=== PATIENT | male | born 1980 | race Two or more races ===

== ENCOUNTER 2018-12-02 10:59 | Inpatient (IN) | payer MEDICAID ==
[~2018-12-02] VITALS: Ht 177.8 cm; Wt 71.4 kg
[2018-12-02 11:45] VITALS: BP 107/66
[2018-12-02] MEDS ORDERED: RISP.5 PO (11:48)
[2018-12-02] MEDS ORDERED: HALOPERIDOL 5 MG TABLET PO PRN (12:00)
[2018-12-02] MEDS ORDERED: OLANZapine 5 MG RAPDIS TABLET PO ONE (14:45)
[2018-12-02] MEDS ORDERED: IBUPROFEN 400 MG TABLET PO PRN (16:00)
[2018-12-02] MEDS ORDERED: ALBUTEROL SULFATE HFA 90 MCG/PUFF 8 GM INHALER IH PRN (16:00)
[2018-12-02] MEDS ORDERED: ACETAMINOPHEN 325 MG TABLET PO PRN (16:00)
[2018-12-02] MEDS ORDERED: ONDANSETRON HCL 4 MG TABLET PO PRN (16:00)
[2018-12-02] MEDS ORDERED: LOPERAMIDE HCL 2 MG CAPSULE PO PRN (16:00)
[2018-12-02] MEDS ORDERED: CloNIDine HCL 0.1 MG TABLET PO PRN (16:00)
[2018-12-02] MEDS ORDERED: NICOTINE 14 MG/24 HOUR PATCH TD PRN (16:00)
[2018-12-02] MEDS ORDERED: MAG HYDROX/AL HYDROX/SIMETH ES 30 ML SUSPENSION UDCUP PO PRN (16:00)
[2018-12-02] MEDS ORDERED: PETROLATUM,WHITE 28 GM JELLY TP PRN (16:00)
[2018-12-02] MEDS ORDERED: DOCUSATE SODIUM 100 MG CAPSULE PO PRN (16:00)
[2018-12-02] MEDS ORDERED: MAGNESIUM HYDROXIDE SUSPENSION 30 ML UDCUP PO PRN (16:00)
[2018-12-02] MEDS ORDERED: GuaiFENesin/D-METHORPHAN [SUGAR-FREE] 200-20MG/10 ML SYRUP UDCUP PO PRN (16:00)
[2018-12-02 16:11] VITALS: BP 132/74
[2018-12-02] MEDS: ZOLPIDEM TARTRATE 10 MG TABLET PO PRN (20:09)
[2018-12-02] MEDS: MIRTAZAPINE 15 MG TABLET PO SCH (20:09)
[2018-12-03 08:17] VITALS: BP 108/63
[2018-12-03] MEDS: LORazepam 2 MG TABLET PO PRN ×3 (08:29→22:26)
[2018-12-03] MEDS: OLANZapine 5 MG RAPDIS TABLET PO SCH ×2 (08:30→16:47)
[2018-12-03 09:06] LABS: BASOPHILS % (AUTO) 0.4 % (0.0-2.0); EOSINOPHILS % (AUTO) 12.8 % (1.0-6.0); HEMATOCRIT 44.7 % (41-53); HEMOGLOBIN 15.3 g/dL (13.5-17.5); LYMPHOCYTES # (AUTO) 1.5 K/uL (1.0-4.8); LYMPHOCYTES % (AUTO) 22.5 % (22.0-44.0); MEAN CORPUSCULAR HEMOGLOBIN 30.9 pg (26.0-34.0); MEAN CORPUSCULAR HGB CONC 34.3 G/dL (31.0-37.0); MEAN CORPUSCULAR VOLUME 90 fL (80-100); MONOCYTES # (AUTO) 0.6 K/uL (0.1-1.0); MONOCYTES % (AUTO) 9.9 % (2.0-9.0); NEUTROPHILS # (AUTO) 3.5 K/uL (1.8-7.7); NEUTROPHILS % (AUTO) 54.4 % (40.0-70.0); PLATELET COUNT (AUTO) 238 K/uL (150-450); RED BLOOD CELL COUNT(AUTO) 4.97 MIL/uL (4.50-5.90); RED CELL DISTRIBUTION WIDTH 12.9 % (11.5-14.5)
[2018-12-03 09:11] LABS: ALANINE AMINOTRANSFERASE 27 U/L (12-78); ALBUMIN 3.9 g/dL (3.4-5.0); ALKALINE PHOSPHATASE 67 U/L (46-116); ANION GAP 9 mmol/L (8-16); ASPARTATE AMINOTRANSFERASE 15 U/L (15-37); BILIRUBIN,TOTAL 0.4 mg/dL (0.1-1.0); CARBON DIOXIDE 28 mmol/L (22-29); CHLORIDE 102 mmol/L (98-107); CHOLESTEROL 209 mg/dL (131-200); FREE T4 (FREE THYROXINE) 0.79 ng/dL (0.76-1.46); GLOMERULAR FILTR. RATE CALC > 60 mL/min (>60); GLUCOSE,RANDOM 92 mg/dL (70-110); HDL CHOLESTEROL 30 mg/dL (40-60); LDL CHOL (CALC.) 111 mg/dL (0-130); POTASSIUM 3.8 mmol/L (3.5-5.1); SODIUM SERUM 139 mmol/L (136-145); THYROID STIMULATING HORMONE 2.58 uIU/mL (0.36-3.74); TOTAL PROTEIN, SERUM 7.1 g/dL (6.4-8.2); TRIGLYCERIDES 341 mg/dL (15-150); UREA NITROGEN, BLOOD 16 mg/dL (7-18)
[2018-12-03 09:14] LABS: AMPHET/METH SCREEN,URINE NEGATIVE (NEGATIVE); BARBITURATE SCREEN, URINE NEGATIVE (NEGATIVE); BENZODIAZEPINES SCREEN,URINE NEGATIVE (NEGATIVE); CANNABINOID SCREEN,URINE POSITIVE (NEGATIVE); COCAINE SCREEN,URINE NEGATIVE (NEGATIVE); METHADONE SCREEN, URINE NEGATIVE (NEGATIVE); OPIATE SCREEN,URINE NEGATIVE (NEGATIVE)
[2018-12-03 09:15] LABS: HEMOGLOBIN A1C 5.4 % (4.5-6.2)
[2018-12-03 09:17] LABS: PHENCYCLIDINE SCREEN,URINE NEGATIVE (NEGATIVE)
[2018-12-03 09:39] LABS: APPEARANCE,URINE CLEAR (CLEAR); BILIRUBIN,URINE NEGATIVE (NEGATIVE); GLUCOSE, URINE (UA) NEGATIVE (NEGATIVE); KETONES,URINE NEGATIVE (NEGATIVE); LEUKOCYTE ESTERASE ,URINE NEGATIVE (NEGATIVE); NITRATE,URINE NEGATIVE (NEGATIVE); OCCULT BLOOD,URINE NEGATIVE (NEGATIVE); PH,URINE 6.5 (5.0-8.0); PROTEIN,URINE NEGATIVE (NEGATIVE); UROBILINOGEN,URINE 0.2 mg/dL (<=1.0)
[2018-12-03 16:00] VITALS: BP 113/75
[2018-12-03] MEDS: MIRTAZAPINE 15 MG TABLET PO SCH (20:31)
[2018-12-03] MEDS: ZOLPIDEM TARTRATE 10 MG TABLET PO PRN (20:31)
[2018-12-04] MEDS: OLANZapine 5 MG RAPDIS TABLET PO SCH (08:08)
[2018-12-04 09:11] VITALS: BP 112/84
[2018-12-04] MEDS ORDERED: OLAN5TAB40 PO (10:05)
[2018-12-04] MEDS ORDERED: MIRT15 PO (10:05)
== END 2018-12-04 13:25 | disposition home or self-care (01) | DRG 750 ==
LOC: B3A 11:59
DX: F25.1 Schizoaffective disorder, depressive type (principal); E78.5 Hyperlipidemia, unspecified; Z79.899 Other long term (current) drug therapy; F10.10 Alcohol abuse, uncomplicated; Z71.41 Alcohol abuse counseling and surveillance of alcoholic; F12.10 Cannabis abuse, uncomplicated
CPT/HCPCS: 80307; 83036; 84439; 84443; 87081

== ENCOUNTER 2018-12-06 00:41 | Inpatient (IN) | payer MEDICAID, OTHER ==
[~2018-12-06] VITALS: Ht 175.3 cm; Wt 71.0 kg
[~2018-12-06 00:41] MED LIST: MIRT15 PO; OLAN5TAB40 PO
[2018-12-06 01:42] LABS: BASOPHILS % (AUTO) 0.4 % (0.0-2.0); EOSINOPHILS % (AUTO) 6.8 % (1.0-6.0); HEMATOCRIT 44.1 % (41-53); HEMOGLOBIN 15.1 g/dL (13.5-17.5); LYMPHOCYTES # (AUTO) 1.7 K/uL (1.0-4.8); LYMPHOCYTES % (AUTO) 21.1 % (22.0-44.0); MEAN CORPUSCULAR HEMOGLOBIN 30.9 pg (26.0-34.0); MEAN CORPUSCULAR HGB CONC 34.3 G/dL (31.0-37.0); MEAN CORPUSCULAR VOLUME 90 fL (80-100); MONOCYTES # (AUTO) 0.8 K/uL (0.1-1.0); MONOCYTES % (AUTO) 9.2 % (2.0-9.0); NEUTROPHILS # (AUTO) 5.1 K/uL (1.8-7.7); NEUTROPHILS % (AUTO) 62.5 % (40.0-70.0); PLATELET COUNT (AUTO) 238 K/uL (150-450); RED CELL DISTRIBUTION WIDTH 12.9 % (11.5-14.5)
[2018-12-06 01:46] LABS: ANION GAP 10 mmol/L (8-16); CALCIUM, TOTAL 9.7 mg/dL (8.8-10.5); CARBON DIOXIDE 26 mmol/L (22-29); CHLORIDE 102 mmol/L (98-107); CREATININE 0.86 mg/dL (0.60-1.30); GLOMERULAR FILTR. RATE CALC > 60 mL/min (>60); GLUCOSE,RANDOM 92 mg/dL (70-110); POTASSIUM 3.9 mmol/L (3.5-5.1); SODIUM SERUM 138 mmol/L (136-145); UREA NITROGEN, BLOOD 15 mg/dL (7-18)
[2018-12-06 01:53] LABS: ALANINE AMINOTRANSFERASE 24 U/L (12-78); ALBUMIN 4.5 g/dL (3.4-5.0); ALKALINE PHOSPHATASE 81 U/L (46-116); ASPARTATE AMINOTRANSFERASE 33 U/L (15-37); BILIRUBIN,TOTAL 0.8 mg/dL (0.1-1.0)
[2018-12-06 02:31] LABS: AMPHET/METH SCREEN,URINE POSITIVE (NEGATIVE); BARBITURATE SCREEN, URINE NEGATIVE (NEGATIVE); BENZODIAZEPINES SCREEN,URINE NEGATIVE (NEGATIVE); CANNABINOID SCREEN,URINE POSITIVE (NEGATIVE); COCAINE SCREEN,URINE NEGATIVE (NEGATIVE); METHADONE SCREEN, URINE NEGATIVE (NEGATIVE); OPIATE SCREEN,URINE NEGATIVE (NEGATIVE); PHENCYCLIDINE SCREEN,URINE NEGATIVE (NEGATIVE)
[2018-12-06] MEDS ORDERED: ZOLPIDEM TARTRATE 10 MG TABLET PO PRN (02:45)
[2018-12-06 04:25] VITALS: BP 143/91
[2018-12-06] MEDS: LORazepam 2 MG TABLET PO PRN (04:45)
[2018-12-06] MEDS ORDERED: MAGNESIUM HYDROXIDE SUSPENSION 30 ML UDCUP PO PRN (07:30)
[2018-12-06] MEDS ORDERED: LOPERAMIDE HCL 2 MG CAPSULE PO PRN (07:30)
[2018-12-06] MEDS ORDERED: ONDANSETRON HCL 4 MG TABLET PO PRN (07:30)
[2018-12-06] MEDS ORDERED: ALBUTEROL SULFATE HFA 90 MCG/PUFF 8 GM INHALER IH PRN (07:30)
[2018-12-06] MEDS ORDERED: ACETAMINOPHEN 325 MG TABLET PO PRN (07:30)
[2018-12-06] MEDS ORDERED: PETROLATUM,WHITE 28 GM JELLY TP PRN (07:30)
[2018-12-06] MEDS ORDERED: MAG HYDROX/AL HYDROX/SIMETH ES 30 ML SUSPENSION UDCUP PO PRN (07:30)
[2018-12-06] MEDS ORDERED: CloNIDine HCL 0.1 MG TABLET PO PRN (07:30)
[2018-12-06] MEDS ORDERED: IBUPROFEN 400 MG TABLET PO PRN (07:30)
[2018-12-06] MEDS ORDERED: DOCUSATE SODIUM 100 MG CAPSULE PO PRN (07:30)
[2018-12-06] MEDS ORDERED: GuaiFENesin/D-METHORPHAN [SUGAR-FREE] 200-20MG/10 ML SYRUP UDCUP PO PRN (07:30)
[2018-12-06 08:41] VITALS: BP 114/64
[2018-12-06] MEDS: OLANZapine 5 MG RAPDIS TABLET PO SCH ×2 (12:07→16:52)
[2018-12-06 19:48] VITALS: BP 123/81
[2018-12-06] MEDS: MIRTAZAPINE 15 MG TABLET PO SCH (20:15)
[2018-12-07 06:59] LABS: HEMOGLOBIN A1C 5.5 % (4.5-6.2)
[2018-12-07 07:12] LABS: CHOL/HDL RATIO 5.7 (4.2-7.3); THYROID STIMULATING HORMONE 2.63 uIU/mL (0.36-3.74)
[2018-12-07] MEDS: OLANZapine 5 MG RAPDIS TABLET PO SCH ×2 (09:10→16:31)
[2018-12-07 14:31] VITALS: BP 111/85
[2018-12-07 16:34] VITALS: BP 118/68
[2018-12-07] MEDS: MIRTAZAPINE 15 MG TABLET PO SCH (20:11)
[2018-12-08 08:00] VITALS: BP 109/74
[2018-12-08] MEDS: OLANZapine 5 MG RAPDIS TABLET PO SCH ×2 (08:40→16:12)
[2018-12-08] MEDS: LORazepam 2 MG TABLET PO PRN (16:12)
[2018-12-08 16:28] VITALS: BP 124/87
[2018-12-08] MEDS: MIRTAZAPINE 15 MG TABLET PO SCH (21:13)
[2018-12-09] MEDS: HALOPERIDOL 5 MG TABLET PO PRN ×2 (07:56→17:11)
[2018-12-09] MEDS: OLANZapine 5 MG RAPDIS TABLET PO SCH ×2 (07:56→17:10)
[2018-12-09] MEDS: LORazepam 2 MG TABLET PO PRN ×2 (07:56→17:10)
[2018-12-09 11:38] VITALS: BP 127/70
[2018-12-09 16:34] VITALS: BP 101/57
[2018-12-09] MEDS: MIRTAZAPINE 15 MG TABLET PO SCH (20:06)
[2018-12-10 08:45] VITALS: BP 129/79
[2018-12-10] MEDS: OLANZapine 5 MG RAPDIS TABLET PO SCH (09:00)
[2018-12-10] MEDS ORDERED: OLAN5TAB30 PO (09:26)
[2018-12-10] MEDS ORDERED: MIRT15 PO (09:26)
== END 2018-12-10 14:45 | disposition home or self-care (01) | DRG 750 ==
LOC: EMS 00:41 → 3EC 03:17
DX: F25.1 Schizoaffective disorder, depressive type (principal); R45.851 Suicidal ideations; Z91.19 Patient's noncompliance with other medical treatment and regimen; F15.10 Other stimulant abuse, uncomplicated; F12.10 Cannabis abuse, uncomplicated; E78.5 Hyperlipidemia, unspecified; G44.209 Tension-type headache, unspecified, not intractable; Z79.899 Other long term (current) drug therapy; F41.9 Anxiety disorder, unspecified; R03.0 Elevated blood-pressure reading, without diagnosis of hypertension; F19.10 Other psychoactive substance abuse, uncomplicated
CPT/HCPCS: 83036; 84443; 87081; G0480

== ENCOUNTER 2018-12-22 18:21 | Emergency (ER) | payer MEDICAID, OTHER ==
[~2018-12-22] VITALS: Ht 167.6 cm; Wt 72.7 kg
[~2018-12-22 18:21] MED LIST changes: +OLAN5TAB30 PO; -OLAN5TAB40 PO
[2018-12-22 21:41] LABS: BASOPHILS % (AUTO) 0.4 % (0.0-2.0); EOSINOPHILS % (AUTO) 7.1 % (1.0-6.0); HEMATOCRIT 42.7 % (41-53); HEMOGLOBIN 14.5 g/dL (13.5-17.5); LYMPHOCYTES # (AUTO) 1.9 K/uL (1.0-4.8); MEAN CORPUSCULAR HEMOGLOBIN 30.7 pg (26.0-34.0); MEAN CORPUSCULAR VOLUME 90 fL (80-100); MONOCYTES # (AUTO) 0.6 K/uL (0.1-1.0); MONOCYTES % (AUTO) 8.2 % (2.0-9.0); NEUTROPHILS # (AUTO) 4.2 K/uL (1.8-7.7); NEUTROPHILS % (AUTO) 58.3 % (40.0-70.0); PLATELET COUNT (AUTO) 309 K/uL (150-450); RED BLOOD CELL COUNT(AUTO) 4.73 MIL/uL (4.50-5.90); RED CELL DISTRIBUTION WIDTH 12.6 % (11.5-14.5)
[2018-12-22 21:52] LABS: AMPHET/METH SCREEN,URINE POSITIVE (NEGATIVE); BARBITURATE SCREEN, URINE NEGATIVE (NEGATIVE); BENZODIAZEPINES SCREEN,URINE NEGATIVE (NEGATIVE); CANNABINOID SCREEN,URINE POSITIVE (NEGATIVE); COCAINE SCREEN,URINE NEGATIVE (NEGATIVE); METHADONE SCREEN, URINE NEGATIVE (NEGATIVE); OPIATE SCREEN,URINE NEGATIVE (NEGATIVE)
[2018-12-22 21:58] LABS: ANION GAP 10 mmol/L (8-16); CALCIUM, TOTAL 9.4 mg/dL (8.8-10.5); CARBON DIOXIDE 27 mmol/L (22-29); CHLORIDE 104 mmol/L (98-107); CREATININE 0.97 mg/dL (0.60-1.30); GLOMERULAR FILTR. RATE CALC > 60 mL/min (>60); GLUCOSE,RANDOM 91 mg/dL (70-110); POTASSIUM 3.8 mmol/L (3.5-5.1); SODIUM SERUM 141 mmol/L (136-145); UREA NITROGEN, BLOOD 16 mg/dL (7-18)
[2018-12-22 22:02] LABS: ALANINE AMINOTRANSFERASE 15 U/L (12-78); ALBUMIN 4.2 g/dL (3.4-5.0); ALKALINE PHOSPHATASE 82 U/L (46-116); ASPARTATE AMINOTRANSFERASE 16 U/L (15-37); BILIRUBIN,TOTAL 0.8 mg/dL (0.1-1.0); TOTAL PROTEIN, SERUM 8.1 g/dL (6.4-8.2)
[2018-12-22 22:19] LABS: PHENCYCLIDINE SCREEN,URINE NEGATIVE (NEGATIVE)
[2018-12-23] MEDS ORDERED: OLANZapine 5 MG TABLET PO ONE (08:45)
[2018-12-23] MEDS ORDERED: ACETAMINOPHEN 500 MG TABLET PO ONE (08:45)
[2018-12-23 08:53] VITALS: BP 118/64
== END 2018-12-23 08:59 | disposition home or self-care (01) ==
LOC: EMS 18:24
DX: F25.1 Schizoaffective disorder, depressive type (principal); F15.10 Other stimulant abuse, uncomplicated; F12.90 Cannabis use, unspecified, uncomplicated; Z59.0 Homelessness
CPT/HCPCS: 36415; 80053; 80307; 85025; 99284; G0480

== ENCOUNTER 2018-12-23 12:15 | Inpatient (IN) | payer MEDICAID, OTHER ==
[~2018-12-23] VITALS: Ht 182.9 cm; Wt 68.3 kg
[2018-12-23] MEDS ORDERED: ZOLPIDEM TARTRATE 10 MG TABLET PO PRN (14:15)
[2018-12-23] MEDS ORDERED: OLANZapine 5 MG RAPDIS TABLET PO PRN (14:15)
[2018-12-23] MEDS ORDERED: OLANZapine 5 MG TABLET PO ONE (14:30)
[2018-12-23 21:38] VITALS: BP 120/87
[2018-12-23] MEDS ORDERED: GuaiFENesin/D-METHORPHAN [SUGAR-FREE] 200-20MG/10 ML SYRUP UDCUP PO PRN (22:45)
[2018-12-23] MEDS ORDERED: ALBUTEROL SULFATE HFA 90 MCG/PUFF 8 GM INHALER IH PRN (22:45)
[2018-12-23] MEDS ORDERED: MAG HYDROX/AL HYDROX/SIMETH ES 30 ML SUSPENSION UDCUP PO PRN (22:45)
[2018-12-23] MEDS ORDERED: MAGNESIUM HYDROXIDE SUSPENSION 30 ML UDCUP PO PRN (22:45)
[2018-12-23] MEDS ORDERED: ONDANSETRON HCL 4 MG TABLET PO PRN (22:45)
[2018-12-23] MEDS ORDERED: CloNIDine HCL 0.1 MG TABLET PO PRN (22:45)
[2018-12-23] MEDS ORDERED: LOPERAMIDE HCL 2 MG CAPSULE PO PRN (22:45)
[2018-12-23] MEDS ORDERED: PETROLATUM,WHITE 28 GM JELLY TP PRN (22:45)
[2018-12-23] MEDS ORDERED: DOCUSATE SODIUM 100 MG CAPSULE PO PRN (22:45)
[2018-12-23] MEDS ORDERED: NICOTINE 14 MG/24 HOUR PATCH TD PRN (22:45)
[2018-12-24] MEDS: OLANZapine 5 MG TABLET PO SCH ×2 (09:36→20:27)
[2018-12-24 12:50] VITALS: BP 105/68
[2018-12-24 16:02] VITALS: BP 104/61
[2018-12-24] MEDS: MIRTAZAPINE 15 MG TABLET PO SCH (20:27)
[2018-12-25 08:12] VITALS: BP 110/70
[2018-12-25] MEDS: OLANZapine 5 MG TABLET PO SCH ×2 (08:40→20:49)
[2018-12-25] MEDS ORDERED: MIRT15 PO (16:01)
[2018-12-25] MEDS ORDERED: OLAN5TAB2 PO (16:01)
[2018-12-25 16:33] VITALS: BP 108/78
[2018-12-25] MEDS: ACETAMINOPHEN 325 MG TABLET PO PRN (17:00)
[2018-12-25] MEDS: MIRTAZAPINE 15 MG TABLET PO SCH (20:49)
[2018-12-26] MEDS: IBUPROFEN 400 MG TABLET PO PRN (03:07)
[2018-12-26 03:08] VITALS: BP 104/62
[2018-12-26 08:41] VITALS: BP 140/67
[2018-12-26] MEDS: OLANZapine 5 MG TABLET PO SCH ×2 (09:18→20:15)
[2018-12-26] MEDS: ACETAMINOPHEN 325 MG TABLET PO PRN (16:37)
[2018-12-26 16:39] VITALS: BP 121/72
[2018-12-26] MEDS: MIRTAZAPINE 15 MG TABLET PO SCH (20:15)
[2018-12-27 00:01] VITALS: BP 117/74
[2018-12-27] MEDS: OLANZapine 5 MG TABLET PO SCH ×2 (08:41→20:11)
[2018-12-27 08:58] VITALS: BP 125/75
[2018-12-27 14:30] VITALS: BP 122/66
[2018-12-27] MEDS: IBUPROFEN 400 MG TABLET PO PRN ×3 (14:33→23:45)
[2018-12-27 18:30] VITALS: BP 128/79
[2018-12-27] MEDS: LORazepam 2 MG TABLET PO PRN (18:42)
[2018-12-27] MEDS: MIRTAZAPINE 15 MG TABLET PO SCH (20:11)
[2018-12-28] VITALS: BP 124/78
[2018-12-28] MEDS: LORazepam 2 MG TABLET PO PRN (02:21)
[2018-12-28 08:15] VITALS: BP 131/86
[2018-12-28] MEDS: OLANZapine 5 MG TABLET PO SCH (08:24)
== END 2018-12-28 14:05 | disposition home or self-care (01) | DRG 750 ==
LOC: EMS 12:21 → 3EC 18:18
DX: F25.1 Schizoaffective disorder, depressive type (principal); R45.851 Suicidal ideations; F41.9 Anxiety disorder, unspecified; G44.209 Tension-type headache, unspecified, not intractable; F19.10 Other psychoactive substance abuse, uncomplicated; F12.10 Cannabis abuse, uncomplicated; F15.10 Other stimulant abuse, uncomplicated; Z71.51 Drug abuse counseling and surveillance of drug abuser; Z91.5 Personal history of self-harm
CPT/HCPCS: 87081

== ENCOUNTER 2019-01-14 19:20 | Inpatient (IN) | payer MEDICAID ==
[~2019-01-14] VITALS: Ht 152.4 cm; Wt 75.0 kg
[~2019-01-14 19:20] MED LIST changes: +OLAN5TAB2 PO; -OLAN5TAB30 PO
[2019-01-14] MEDS ORDERED: RISP2 PO (19:33)
[2019-01-14 20:14] LABS: BASOPHILS % (AUTO) 0.4 % (0.0-2.0); EOSINOPHILS % (AUTO) 10.8 % (1.0-6.0); HEMATOCRIT 42.8 % (41-53); HEMOGLOBIN 14.4 g/dL (13.5-17.5); LYMPHOCYTES # (AUTO) 1.7 K/uL (1.0-4.8); MEAN CORPUSCULAR HEMOGLOBIN 30.1 pg (26.0-34.0); MEAN CORPUSCULAR HGB CONC 33.7 G/dL (31.0-37.0); MEAN CORPUSCULAR VOLUME 89 fL (80-100); MONOCYTES # (AUTO) 0.5 K/uL (0.1-1.0); MONOCYTES % (AUTO) 8.2 % (2.0-9.0); NEUTROPHILS # (AUTO) 3.1 K/uL (1.8-7.7); NEUTROPHILS % (AUTO) 52.6 % (40.0-70.0); PLATELET COUNT (AUTO) 320 K/uL (150-450); RED CELL DISTRIBUTION WIDTH 12.9 % (11.5-14.5)
[2019-01-14 20:21] LABS: ANION GAP 7 mmol/L (8-16); CALCIUM, TOTAL 9.3 mg/dL (8.8-10.5); CARBON DIOXIDE 27 mmol/L (22-29); CHLORIDE 100 mmol/L (98-107); CREATININE 0.94 mg/dL (0.60-1.30); GLOMERULAR FILTR. RATE CALC > 60 mL/min (>60); GLUCOSE,RANDOM 145 mg/dL (70-110); POTASSIUM 3.3 mmol/L (3.5-5.1); SODIUM SERUM 134 mmol/L (136-145); UREA NITROGEN, BLOOD 12 mg/dL (7-18)
[2019-01-14 20:28] LABS: ALANINE AMINOTRANSFERASE 17 U/L (12-78); ALBUMIN 3.6 g/dL (3.4-5.0); ALKALINE PHOSPHATASE 91 U/L (46-116); ASPARTATE AMINOTRANSFERASE 15 U/L (15-37); BILIRUBIN,TOTAL 0.4 mg/dL (0.1-1.0); TOTAL PROTEIN, SERUM 7.6 g/dL (6.4-8.2)
[2019-01-14 22:24] LABS: AMPHET/METH SCREEN,URINE POSITIVE (NEGATIVE); BARBITURATE SCREEN, URINE NEGATIVE (NEGATIVE); BENZODIAZEPINES SCREEN,URINE NEGATIVE (NEGATIVE); CANNABINOID SCREEN,URINE POSITIVE (NEGATIVE); COCAINE SCREEN,URINE NEGATIVE (NEGATIVE); METHADONE SCREEN, URINE NEGATIVE (NEGATIVE); OPIATE SCREEN,URINE NEGATIVE (NEGATIVE)
[2019-01-14 22:25] LABS: PHENCYCLIDINE SCREEN,URINE NEGATIVE (NEGATIVE)
[2019-01-15] MEDS ORDERED: POTASSIUM CHLORIDE 20 MEQ ER TABLET PO ONE
[2019-01-15 02:13] VITALS: BP 140/80
[2019-01-15 08:06] VITALS: BP 113/62
[2019-01-15] MEDS: OLANZapine 5 MG TABLET PO SCH ×2 (15:07→20:34)
[2019-01-15] MEDS: LORazepam 2 MG TABLET PO PRN (16:42)
[2019-01-15] MEDS: HALOPERIDOL 5 MG TABLET PO PRN (16:42)
[2019-01-15 17:14] VITALS: BP 108/68
[2019-01-15] MEDS: ZOLPIDEM TARTRATE 10 MG TABLET PO PRN (20:34)
[2019-01-15] MEDS: MIRTAZAPINE 15 MG TABLET PO SCH (20:34)
[2019-01-16 06:04] VITALS: BP 115/72
[2019-01-16 09:03] VITALS: BP 117/64
[2019-01-16] MEDS: OLANZapine 5 MG TABLET PO SCH ×2 (09:32→20:23)
[2019-01-16 16:52] VITALS: BP 137/75
[2019-01-16] MEDS: LORazepam 2 MG TABLET PO PRN (16:53)
[2019-01-16] MEDS: HALOPERIDOL 5 MG TABLET PO PRN (16:53)
[2019-01-16] MEDS: MIRTAZAPINE 15 MG TABLET PO SCH (20:23)
[2019-01-16] MEDS: ZOLPIDEM TARTRATE 10 MG TABLET PO PRN (20:23)
[2019-01-17 03:44] VITALS: BP 122/82
[2019-01-17 08:13] VITALS: BP 122/60
[2019-01-17] MEDS: OLANZapine 5 MG TABLET PO SCH (08:22)
[2019-01-17] MEDS ORDERED: MIRT15 PO (09:41)
[2019-01-17] MEDS ORDERED: OLAN5TAB27 PO (09:41)
== END 2019-01-17 10:00 | disposition home or self-care (01) | DRG 750 ==
LOC: EMS 19:24 → B3A 23:47
DX: F25.1 Schizoaffective disorder, depressive type (principal); E87.1 Hypo-osmolality and hyponatremia; R45.851 Suicidal ideations; E87.6 Hypokalemia; F12.10 Cannabis abuse, uncomplicated; F15.10 Other stimulant abuse, uncomplicated; F17.210 Nicotine dependence, cigarettes, uncomplicated; Z79.899 Other long term (current) drug therapy; Z91.14 Patient's other noncompliance with medication regimen; Z71.51 Drug abuse counseling and surveillance of drug abuser
CPT/HCPCS: G0480

== ENCOUNTER 2019-01-29 19:01 | Inpatient (IN) | payer MEDICAID, OTHER ==
[~2019-01-29] VITALS: Ht 185.4 cm; Wt 67.2 kg
[~2019-01-29 19:01] MED LIST changes: -OLAN5TAB2 PO; +OLAN5TAB27 PO
[2019-01-29 21:34] LABS: BASOPHILS % (AUTO) 0.4 % (0.0-2.0); EOSINOPHILS % (AUTO) 11.3 % (1.0-6.0); HEMATOCRIT 47.6 % (41-53); HEMOGLOBIN 16.4 g/dL (13.5-17.5); LYMPHOCYTES # (AUTO) 2.1 K/uL (1.0-4.8); LYMPHOCYTES % (AUTO) 26.8 % (22.0-44.0); MEAN CORPUSCULAR HEMOGLOBIN 30.4 pg (26.0-34.0); MEAN CORPUSCULAR HGB CONC 34.4 G/dL (31.0-37.0); MEAN CORPUSCULAR VOLUME 88 fL (80-100); MONOCYTES # (AUTO) 0.6 K/uL (0.1-1.0); MONOCYTES % (AUTO) 7.9 % (2.0-9.0); NEUTROPHILS # (AUTO) 4.3 K/uL (1.8-7.7); NEUTROPHILS % (AUTO) 53.6 % (40.0-70.0); PLATELET COUNT (AUTO) 323 K/uL (150-450); RED BLOOD CELL COUNT(AUTO) 5.39 MIL/uL (4.50-5.90); RED CELL DISTRIBUTION WIDTH 12.7 % (11.5-14.5)
[2019-01-29 21:57] LABS: ANION GAP 9 mmol/L (8-16); CALCIUM, TOTAL 9.6 mg/dL (8.8-10.5); CARBON DIOXIDE 29 mmol/L (22-29); CHLORIDE 98 mmol/L (98-107); CREATININE 1.01 mg/dL (0.60-1.30); GLOMERULAR FILTR. RATE CALC > 60 mL/min (>60); GLUCOSE,RANDOM 99 mg/dL (70-110); POTASSIUM 4.4 mmol/L (3.5-5.1); SODIUM SERUM 136 mmol/L (136-145); UREA NITROGEN, BLOOD 16 mg/dL (7-18)
[2019-01-29 21:58] LABS: ALANINE AMINOTRANSFERASE 10 U/L (12-78); ALBUMIN 4.4 g/dL (3.4-5.0); ALKALINE PHOSPHATASE 95 U/L (46-116); ASPARTATE AMINOTRANSFERASE 16 U/L (15-37); BILIRUBIN,TOTAL 0.6 mg/dL (0.1-1.0); TOTAL PROTEIN, SERUM 8.5 g/dL (6.4-8.2)
[2019-01-29 23:31] LABS: AMPHET/METH SCREEN,URINE POSITIVE (NEGATIVE); BARBITURATE SCREEN, URINE NEGATIVE (NEGATIVE); BENZODIAZEPINES SCREEN,URINE NEGATIVE (NEGATIVE); CANNABINOID SCREEN,URINE POSITIVE (NEGATIVE); COCAINE SCREEN,URINE NEGATIVE (NEGATIVE); METHADONE SCREEN, URINE NEGATIVE (NEGATIVE); OPIATE SCREEN,URINE NEGATIVE (NEGATIVE)
[2019-01-29 23:32] LABS: PHENCYCLIDINE SCREEN,URINE NEGATIVE (NEGATIVE)
[2019-01-30] MEDS ORDERED: ZOLPIDEM TARTRATE 10 MG TABLET PO PRN (00:15)
[2019-01-30] MEDS ORDERED: LORazepam 2 MG TABLET PO PRN (00:15)
[2019-01-30] MEDS ORDERED: HALOPERIDOL 5 MG TABLET PO PRN (00:15)
[2019-01-30] MEDS ORDERED: INFLUENZA VIRUS VACCINE QVS 2019-20 (3YR+)/PF 60 MCG/0.5 ML SYRINGE IM ONE (02:45)
[2019-01-30 03:15] VITALS: BP 124/86
[2019-01-30 08:37] VITALS: BP 112/68
[2019-01-30] MEDS: OLANZapine 5 MG TABLET PO SCH ×2 (10:55→20:23)
[2019-01-30 16:00] VITALS: BP 122/74
[2019-01-30] MEDS: MIRTAZAPINE 15 MG TABLET PO SCH (20:23)
[2019-01-31 08:15] VITALS: BP 114/72
[2019-01-31] MEDS: OLANZapine 5 MG TABLET PO SCH ×2 (08:35→21:06)
[2019-01-31 16:00] VITALS: BP 131/72
[2019-01-31] MEDS: MIRTAZAPINE 15 MG TABLET PO SCH (21:06)
[2019-02-01] MEDS: OLANZapine 5 MG TABLET PO SCH ×2 (08:01→20:50)
[2019-02-01 09:34] VITALS: BP 127/72
[2019-02-01] MEDS ORDERED: CloNIDine HCL 0.1 MG TABLET PO PRN (11:15)
[2019-02-01] MEDS ORDERED: DOCUSATE SODIUM 100 MG CAPSULE PO PRN (11:15)
[2019-02-01] MEDS ORDERED: MAGNESIUM HYDROXIDE SUSPENSION 30 ML UDCUP PO PRN (11:15)
[2019-02-01] MEDS ORDERED: MAG HYDROX/AL HYDROX/SIMETH ES 30 ML SUSPENSION UDCUP PO PRN (11:15)
[2019-02-01] MEDS ORDERED: ACETAMINOPHEN 325 MG TABLET PO PRN (11:15)
[2019-02-01] MEDS ORDERED: GuaiFENesin/D-METHORPHAN [SUGAR-FREE] 200-20MG/10 ML SYRUP UDCUP PO PRN (11:15)
[2019-02-01] MEDS ORDERED: NICOTINE 14 MG/24 HOUR PATCH TD PRN (11:15)
[2019-02-01] MEDS ORDERED: IBUPROFEN 400 MG TABLET PO PRN (11:15)
[2019-02-01] MEDS ORDERED: LOPERAMIDE HCL 2 MG CAPSULE PO PRN (11:15)
[2019-02-01] MEDS ORDERED: PETROLATUM,WHITE 28 GM JELLY TP PRN (11:15)
[2019-02-01] MEDS ORDERED: ALBUTEROL SULFATE HFA 90 MCG/PUFF 8 GM INHALER IH PRN (11:15)
[2019-02-01] MEDS ORDERED: ONDANSETRON HCL 4 MG TABLET PO PRN (11:15)
[2019-02-01 17:45] VITALS: BP 113/61
[2019-02-01] MEDS: MIRTAZAPINE 15 MG TABLET PO SCH (20:50)
[2019-02-02 08:00] VITALS: BP 118/75
[2019-02-02] MEDS: OLANZapine 5 MG TABLET PO SCH (09:14)
[2019-04-08] MEDS ORDERED: MIRT15 PO (14:22)
== END 2019-02-02 15:30 | disposition home or self-care (01) | DRG 750 ==
LOC: EMS 19:02 → 3EC 01-30 01:00 → 3EI 02-01 14:40
DX: F25.1 Schizoaffective disorder, depressive type (principal); R45.851 Suicidal ideations; F12.90 Cannabis use, unspecified, uncomplicated; F15.90 Other stimulant use, unspecified, uncomplicated; F10.10 Alcohol abuse, uncomplicated; R00.0 Tachycardia, unspecified; Y90.9 Presence of alcohol in blood, level not specified; F17.200 Nicotine dependence, unspecified, uncomplicated; Z71.6 Tobacco abuse counseling; Z79.899 Other long term (current) drug therapy
CPT/HCPCS: 87081; G0480

== ENCOUNTER 2019-02-17 18:02 | Inpatient (IN) | payer MEDICAID, OTHER ==
[~2019-02-17] VITALS: Ht 167.6 cm; Wt 68.0 kg
[2019-02-17] MEDS ORDERED: ALBUTEROL SULFATE 2.5 MG/0.5 ML NEB SOLUTION NEB ONE (18:45)
[2019-02-17] MEDS ORDERED: IPRATROPIUM BROMIDE 0.5 MG/2.5 ML NEB SOLUTION NEB ONE (18:45)
[2019-02-17 19:21] LABS: BASOPHILS % (AUTO) 0.2 % (0.0-2.0); HEMATOCRIT 47.7 % (41-53); HEMOGLOBIN 16.3 g/dL (13.5-17.5); LYMPHOCYTES # (AUTO) 1.4 K/uL (1.0-4.8); LYMPHOCYTES % (AUTO) 19.3 % (22.0-44.0); MEAN CORPUSCULAR HEMOGLOBIN 30.1 pg (26.0-34.0); MEAN CORPUSCULAR HGB CONC 34.1 G/dL (31.0-37.0); MEAN CORPUSCULAR VOLUME 88 fL (80-100); MONOCYTES # (AUTO) 0.6 K/uL (0.1-1.0); MONOCYTES % (AUTO) 8.5 % (2.0-9.0); NEUTROPHILS # (AUTO) 4.8 K/uL (1.8-7.7); PLATELET COUNT (AUTO) 281 K/uL (150-450); RED BLOOD CELL COUNT(AUTO) 5.42 MIL/uL (4.50-5.90)
[2019-02-17 20:01] LABS: ANION GAP 6 mmol/L (8-16); CARBON DIOXIDE 32 mmol/L (22-29); CHLORIDE 102 mmol/L (98-107); CREATININE 0.88 mg/dL (0.60-1.30); GLUCOSE,RANDOM 90 mg/dL (70-110); POTASSIUM 3.9 mmol/L (3.5-5.1); SODIUM SERUM 140 mmol/L (136-145); UREA NITROGEN, BLOOD 11 mg/dL (7-18)
[2019-02-17 20:02] LABS: CALCIUM, TOTAL 8.8 mg/dL (8.8-10.5); GLOMERULAR FILTR. RATE CALC > 60 mL/min (>60)
[2019-02-17 20:06] LABS: ALANINE AMINOTRANSFERASE 25 U/L (12-78); ALBUMIN 4.1 g/dL (3.4-5.0); ALKALINE PHOSPHATASE 82 U/L (46-116); ASPARTATE AMINOTRANSFERASE 16 U/L (15-37); BILIRUBIN,TOTAL 0.8 mg/dL (0.1-1.0)
[2019-02-17] MEDS ORDERED: 0.9% SODIUM CHLORIDE 5 ML NEB SOLUTION NEB ONE (22:29)
[2019-02-18 01:17] LABS: AMPHET/METH SCREEN,URINE POSITIVE (NEGATIVE); BARBITURATE SCREEN, URINE NEGATIVE (NEGATIVE); BENZODIAZEPINES SCREEN,URINE NEGATIVE (NEGATIVE); CANNABINOID SCREEN,URINE POSITIVE (NEGATIVE); COCAINE SCREEN,URINE NEGATIVE (NEGATIVE); METHADONE SCREEN, URINE NEGATIVE (NEGATIVE); OPIATE SCREEN,URINE NEGATIVE (NEGATIVE); PHENCYCLIDINE SCREEN,URINE NEGATIVE (NEGATIVE)
[2019-02-18] MEDS ORDERED: ZOLPIDEM TARTRATE 10 MG TABLET PO PRN (01:45)
[2019-02-18 03:13] VITALS: BP 126/80
[2019-02-18 03:14] VITALS: BP 112/71
[2019-02-18 03:16] LABS: APPEARANCE,URINE CLEAR (CLEAR); BILIRUBIN,URINE NEGATIVE (NEGATIVE); GLUCOSE, URINE (UA) NEGATIVE (NEGATIVE); KETONES,URINE 40 mg/dL (NEGATIVE); LEUKOCYTE ESTERASE ,URINE NEGATIVE (NEGATIVE); NITRATE,URINE NEGATIVE (NEGATIVE); OCCULT BLOOD,URINE NEGATIVE (NEGATIVE); PROTEIN,URINE NEGATIVE (NEGATIVE); UROBILINOGEN,URINE 0.2 mg/dL (<=1.0)
[2019-02-18] MEDS ORDERED: INFLUENZA VIRUS VACCINE QVS 2019-20 (3YR+)/PF 60 MCG/0.5 ML SYRINGE IM ONE (03:45)
[2019-02-18 08:12] VITALS: BP 140/90
[2019-02-18] MEDS: LORazepam 2 MG TABLET PO PRN ×2 (10:53→16:40)
[2019-02-18] MEDS ORDERED: OLAN5TAB27 PO (11:15)
[2019-02-18] MEDS ORDERED: MIRT15 PO (11:15)
[2019-02-18] MEDS: OLANZapine 5 MG TABLET PO SCH ×2 (12:49→20:01)
[2019-02-18] MEDS: HALOPERIDOL 5 MG TABLET PO PRN (16:40)
[2019-02-18] MEDS: MIRTAZAPINE 15 MG TABLET PO SCH (20:01)
[2019-02-19 03:52] VITALS: BP 132/80
[2019-02-19 08:00] VITALS: BP 106/65
[2019-02-19] MEDS: OLANZapine 5 MG TABLET PO SCH ×2 (08:01→20:37)
[2019-02-19] MEDS: HALOPERIDOL 5 MG TABLET PO PRN (08:26)
[2019-02-19] MEDS: LORazepam 2 MG TABLET PO PRN (08:26)
[2019-02-19 11:06] LABS: GLUCOSE,POINT OF CARE 94 MG/DL (70-110)
[2019-02-19 16:02] VITALS: BP 114/70
[2019-02-19] MEDS: MIRTAZAPINE 15 MG TABLET PO SCH (20:37)
[2019-02-20 03:00] VITALS: BP 129/66
[2019-02-20 08:09] VITALS: BP 108/59
[2019-02-20] MEDS: OLANZapine 5 MG TABLET PO SCH ×2 (08:11→20:03)
[2019-02-20 16:00] VITALS: BP 112/64
[2019-02-20] MEDS: LORazepam 2 MG TABLET PO PRN (17:49)
[2019-02-20] MEDS: MIRTAZAPINE 15 MG TABLET PO SCH (20:03)
[2019-02-21 06:23] VITALS: BP 118/70
[2019-02-21 08:03] VITALS: BP 103/62
[2019-02-21] MEDS: OLANZapine 5 MG TABLET PO SCH ×2 (08:10→21:06)
[2019-02-21 16:02] VITALS: BP 120/74
[2019-02-21] MEDS: MIRTAZAPINE 15 MG TABLET PO SCH (21:06)
[2019-02-22 05:00] VITALS: BP 100/62
[2019-02-22 08:12] VITALS: BP 111/70
[2019-02-22] MEDS: OLANZapine 5 MG TABLET PO SCH ×2 (08:12→20:04)
[2019-02-22 18:38] VITALS: BP 121/75
[2019-02-22] MEDS: MIRTAZAPINE 15 MG TABLET PO SCH (20:04)
[2019-02-23 06:42] VITALS: BP 101/63
[2019-02-23 08:28] VITALS: BP 124/86
[2019-02-23] MEDS: OLANZapine 5 MG TABLET PO SCH (09:27)
[2019-02-23] MEDS ORDERED: LOPERAMIDE HCL 2 MG CAPSULE PO PRN (12:15)
[2019-02-23] MEDS ORDERED: PETROLATUM,WHITE 28 GM JELLY TP PRN (12:15)
[2019-02-23] MEDS ORDERED: MAGNESIUM HYDROXIDE SUSPENSION 30 ML UDCUP PO PRN (12:15)
[2019-02-23] MEDS ORDERED: IBUPROFEN 400 MG TABLET PO PRN (12:15)
[2019-02-23] MEDS ORDERED: MAG HYDROX/AL HYDROX/SIMETH ES 30 ML SUSPENSION UDCUP PO PRN (12:15)
[2019-02-23] MEDS ORDERED: ONDANSETRON HCL 4 MG TABLET PO PRN (12:15)
[2019-02-23] MEDS ORDERED: DOCUSATE SODIUM 100 MG CAPSULE PO PRN (12:15)
[2019-02-23] MEDS ORDERED: ACETAMINOPHEN 325 MG TABLET PO PRN (12:15)
[2019-02-23] MEDS ORDERED: ALBUTEROL SULFATE HFA 90 MCG/PUFF 8 GM INHALER IH PRN (12:15)
[2019-02-23] MEDS ORDERED: CloNIDine HCL 0.1 MG TABLET PO PRN (12:15)
[2019-02-23] MEDS ORDERED: GuaiFENesin/D-METHORPHAN [SUGAR-FREE] 200-20MG/10 ML SYRUP UDCUP PO PRN (12:15)
[2019-02-23] MEDS ORDERED: NICOTINE 14 MG/24 HOUR PATCH TD PRN (12:15)
[2019-02-23] MEDS ORDERED: OLAN5TAB27 PO (14:45)
[2019-02-23] MEDS ORDERED: MIRT15 PO (14:45)
[2019-02-23 16:00] VITALS: BP 114/69
== END 2019-02-23 19:40 | disposition home or self-care (01) | DRG 750 ==
LOC: EMS 18:02 → B3A 02-18 03:36
DX: F25.1 Schizoaffective disorder, depressive type (principal); R45.851 Suicidal ideations; F15.20 Other stimulant dependence, uncomplicated; E78.5 Hyperlipidemia, unspecified; F10.10 Alcohol abuse, uncomplicated; Y90.9 Presence of alcohol in blood, level not specified; F12.20 Cannabis dependence, uncomplicated; F17.200 Nicotine dependence, unspecified, uncomplicated; Z79.899 Other long term (current) drug therapy; Z91.5 Personal history of self-harm; Z53.20 Procedure and treatment not carried out because of patient's decision for unspecified reasons
CPT/HCPCS: 84439; 87081; 94640; G0480

== ENCOUNTER 2019-02-19 10:31 | Emergency (ER) | payer OTHER ==
[~2019-02-19] VITALS: Ht 182.9 cm; Wt 82.0 kg
[2019-02-19 11:47] LABS: BASOPHILS % (AUTO) 0.4 % (0.0-2.0); EOSINOPHILS % (AUTO) 12.3 % (1.0-6.0); HEMOGLOBIN 15.6 g/dL (13.5-17.5); LYMPHOCYTES # (AUTO) 1.4 K/uL (1.0-4.8); LYMPHOCYTES % (AUTO) 27.5 % (22.0-44.0); MEAN CORPUSCULAR HGB CONC 35.3 G/dL (31.0-37.0); MEAN CORPUSCULAR VOLUME 88 fL (80-100); MONOCYTES # (AUTO) 0.5 K/uL (0.1-1.0); MONOCYTES % (AUTO) 9.5 % (2.0-9.0); NEUTROPHILS # (AUTO) 2.5 K/uL (1.8-7.7); NEUTROPHILS % (AUTO) 50.3 % (40.0-70.0); PLATELET COUNT (AUTO) 244 K/uL (150-450); RED BLOOD CELL COUNT(AUTO) 5.02 MIL/uL (4.50-5.90); RED CELL DISTRIBUTION WIDTH 13.1 % (11.5-14.5)
[2019-02-19 12:03] LABS: PROTHROMBIN TIME 10.1 SEC (9.4-11.6)
[2019-02-19 12:04] LABS: ALANINE AMINOTRANSFERASE 21 U/L (12-78); ALKALINE PHOSPHATASE 82 U/L (46-116); ANION GAP 7 mmol/L (8-16); ASPARTATE AMINOTRANSFERASE 13 U/L (15-37); BILIRUBIN,TOTAL 0.5 mg/dL (0.1-1.0); CARBON DIOXIDE 34 mmol/L (22-29); CHLORIDE 101 mmol/L (98-107); CREATINE KINASE, TOTAL ONLY 42 U/L (39-308); CREATININE 0.86 mg/dL (0.60-1.30); GLOMERULAR FILTR. RATE CALC > 60 mL/min (>60); GLUCOSE,RANDOM 90 mg/dL (70-110); POTASSIUM 3.7 mmol/L (3.5-5.1); SODIUM SERUM 142 mmol/L (136-145); TOTAL PROTEIN, SERUM 7.5 g/dL (6.4-8.2)
[2019-02-19 12:10] LABS: TROPONIN I < 0.02 ng/mL (0.00-0.05)
[2019-02-19 12:12] LABS: LACTIC ACID 1.3 mmol/L (0.4-2.0)
[2019-02-19 12:17] LABS: UREA NITROGEN, BLOOD 21 mg/dL (7-18)
[2019-02-19 12:28] LABS: AMMONIA < 10 umol/L (11-32)
[2019-02-19 12:34] LABS: THYROID STIMULATING HORMONE 3.57 uIU/mL (0.36-3.74)
[2019-02-19 13:20] LABS: APPEARANCE,URINE CLEAR (CLEAR); BILIRUBIN,URINE NEGATIVE (NEGATIVE); GLUCOSE, URINE (UA) NEGATIVE (NEGATIVE); KETONES,URINE NEGATIVE (NEGATIVE); LEUKOCYTE ESTERASE ,URINE NEGATIVE (NEGATIVE); NITRATE,URINE NEGATIVE (NEGATIVE); OCCULT BLOOD,URINE NEGATIVE (NEGATIVE); PH,URINE 5.5 (5.0-8.0); PROTEIN,URINE NEGATIVE (NEGATIVE); UROBILINOGEN,URINE 0.2 mg/dL (<=1.0)
[2019-02-19 13:25] LABS: AMPHET/METH SCREEN,URINE POSITIVE (NEGATIVE); BARBITURATE SCREEN, URINE NEGATIVE (NEGATIVE); BENZODIAZEPINES SCREEN,URINE NEGATIVE (NEGATIVE); CANNABINOID SCREEN,URINE POSITIVE (NEGATIVE); COCAINE SCREEN,URINE NEGATIVE (NEGATIVE); METHADONE SCREEN, URINE NEGATIVE (NEGATIVE); OPIATE SCREEN,URINE NEGATIVE (NEGATIVE)
[2019-02-19 13:26] LABS: PHENCYCLIDINE SCREEN,URINE NEGATIVE (NEGATIVE)
[2019-02-19 14:38] VITALS: BP 123/72
== END 2019-02-19 14:40 | disposition home or self-care (01) ==
LOC: EMS 10:32
DX: R41.82 Altered mental status, unspecified (principal); R45.851 Suicidal ideations; F20.9 Schizophrenia, unspecified; F17.210 Nicotine dependence, cigarettes, uncomplicated; F14.90 Cocaine use, unspecified, uncomplicated; F12.90 Cannabis use, unspecified, uncomplicated; F15.90 Other stimulant use, unspecified, uncomplicated
CPT/HCPCS: 36415; 70450; 71045; 80053; 80307; 81003; 82140; 82550; 82962; 83605; 84443; 84484; 85025; 85610; 85730; 93005; 99284; G0480

== ENCOUNTER 2019-03-06 08:19 | Inpatient (IN) | payer MEDICAID, OTHER ==
[~2019-03-06] VITALS: Ht 180.3 cm; Wt 66.8 kg
[2019-03-06] MEDS ORDERED: RISP.5 PO (08:34)
[2019-03-06 08:42] LABS: BASOPHILS % (AUTO) 0.3 % (0.0-2.0); EOSINOPHILS % (AUTO) 6.3 % (1.0-6.0); HEMATOCRIT 48.4 % (41-53); HEMOGLOBIN 16.5 g/dL (13.5-17.5); LYMPHOCYTES # (AUTO) 1.4 K/uL (1.0-4.8); LYMPHOCYTES % (AUTO) 17.8 % (22.0-44.0); MEAN CORPUSCULAR HGB CONC 34.2 G/dL (31.0-37.0); MEAN CORPUSCULAR VOLUME 88 fL (80-100); MONOCYTES # (AUTO) 0.4 K/uL (0.1-1.0); MONOCYTES % (AUTO) 5.6 % (2.0-9.0); NEUTROPHILS # (AUTO) 5.5 K/uL (1.8-7.7); PLATELET COUNT (AUTO) 343 K/uL (150-450); RED BLOOD CELL COUNT(AUTO) 5.52 MIL/uL (4.50-5.90); RED CELL DISTRIBUTION WIDTH 13.1 % (11.5-14.5)
[2019-03-06 08:54] LABS: ANION GAP 9 mmol/L (8-16); CALCIUM, TOTAL 9.3 mg/dL (8.8-10.5); CARBON DIOXIDE 27 mmol/L (22-29); CHLORIDE 101 mmol/L (98-107); CREATININE 1.02 mg/dL (0.60-1.30); GLOMERULAR FILTR. RATE CALC > 60 mL/min (>60); GLUCOSE,RANDOM 104 mg/dL (70-110); SODIUM SERUM 137 mmol/L (136-145); UREA NITROGEN, BLOOD 14 mg/dL (7-18)
[2019-03-06 08:59] LABS: ALANINE AMINOTRANSFERASE 21 U/L (12-78); ALBUMIN 4.5 g/dL (3.4-5.0); ALKALINE PHOSPHATASE 85 U/L (46-116); ASPARTATE AMINOTRANSFERASE 15 U/L (15-37); BILIRUBIN,TOTAL 0.4 mg/dL (0.1-1.0)
[2019-03-06] MEDS ORDERED: LORazepam 2 MG/ML VIAL IM ONE (09:15)
[2019-03-06] MEDS ORDERED: OLANZapine 5 MG TABLET PO ONE (09:45)
[2019-03-06] MEDS ORDERED: ZOLPIDEM TARTRATE 10 MG TABLET PO PRN (10:15)
[2019-03-06] MEDS ORDERED: HALOPERIDOL 5 MG TABLET PO PRN (10:15)
[2019-03-06] MEDS ORDERED: LORazepam 2 MG TABLET PO PRN (10:15)
[2019-03-06 10:48] LABS: AMPHET/METH SCREEN,URINE POSITIVE (NEGATIVE); BARBITURATE SCREEN, URINE NEGATIVE (NEGATIVE); BENZODIAZEPINES SCREEN,URINE NEGATIVE (NEGATIVE); CANNABINOID SCREEN,URINE POSITIVE (NEGATIVE); COCAINE SCREEN,URINE NEGATIVE (NEGATIVE); METHADONE SCREEN, URINE NEGATIVE (NEGATIVE); OPIATE SCREEN,URINE NEGATIVE (NEGATIVE)
[2019-03-06 10:49] LABS: PHENCYCLIDINE SCREEN,URINE NEGATIVE (NEGATIVE)
[2019-03-06 12:30] VITALS: BP 120/74
[2019-03-06 12:53] VITALS: BP 119/79
[2019-03-06 13:15] VITALS: BP 119/79
[2019-03-06 13:18] VITALS: BP 119/79
[2019-03-06 13:52] LABS: BILIRUBIN,URINE NEGATIVE (NEGATIVE); GLUCOSE, URINE (UA) NEGATIVE (NEGATIVE); KETONES,URINE NEGATIVE (NEGATIVE); LEUKOCYTE ESTERASE ,URINE NEGATIVE (NEGATIVE); NITRATE,URINE NEGATIVE (NEGATIVE); OCCULT BLOOD,URINE NEGATIVE (NEGATIVE); UROBILINOGEN,URINE 0.2 mg/dL (<=1.0)
[2019-03-06 13:59] LABS: APPEARANCE,URINE CLEAR (CLEAR); PROTEIN,URINE NEGATIVE (NEGATIVE)
[2019-03-06] MEDS ORDERED: ALBUTEROL SULFATE HFA 90 MCG/PUFF 8 GM INHALER IH PRN (15:00)
[2019-03-06] MEDS ORDERED: IBUPROFEN 400 MG TABLET PO PRN (15:00)
[2019-03-06] MEDS ORDERED: MAGNESIUM HYDROXIDE SUSPENSION 30 ML UDCUP PO PRN (15:00)
[2019-03-06] MEDS ORDERED: LOPERAMIDE HCL 2 MG CAPSULE PO PRN (15:00)
[2019-03-06] MEDS ORDERED: GuaiFENesin/D-METHORPHAN [SUGAR-FREE] 200-20MG/10 ML SYRUP UDCUP PO PRN (15:00)
[2019-03-06] MEDS ORDERED: NICOTINE 14 MG/24 HOUR PATCH TD PRN (15:00)
[2019-03-06] MEDS ORDERED: PETROLATUM,WHITE 28 GM JELLY TP PRN (15:00)
[2019-03-06] MEDS ORDERED: MAG HYDROX/AL HYDROX/SIMETH ES 30 ML SUSPENSION UDCUP PO PRN (15:00)
[2019-03-06] MEDS ORDERED: ACETAMINOPHEN 325 MG TABLET PO PRN (15:00)
[2019-03-06] MEDS ORDERED: DOCUSATE SODIUM 100 MG CAPSULE PO PRN (15:00)
[2019-03-06] MEDS ORDERED: ONDANSETRON HCL 4 MG TABLET PO PRN (15:00)
[2019-03-06] MEDS ORDERED: CloNIDine HCL 0.1 MG TABLET PO PRN (15:00)
[2019-03-06] MEDS: MIRTAZAPINE 15 MG TABLET PO SCH (21:00)
[2019-03-06] MEDS: OLANZapine 7.5 MG TABLET PO SCH (21:00)
[2019-03-07 08:20] VITALS: BP 127/88
[2019-03-07 08:27] LABS: BASOPHILS % (AUTO) 0.4 % (0.0-2.0); HEMATOCRIT 46.3 % (41-53); HEMOGLOBIN 15.8 g/dL (13.5-17.5); LYMPHOCYTES # (AUTO) 1.4 K/uL (1.0-4.8); LYMPHOCYTES % (AUTO) 19.3 % (22.0-44.0); MEAN CORPUSCULAR HEMOGLOBIN 30.1 pg (26.0-34.0); MEAN CORPUSCULAR HGB CONC 34.1 G/dL (31.0-37.0); MEAN CORPUSCULAR VOLUME 88 fL (80-100); MONOCYTES # (AUTO) 0.4 K/uL (0.1-1.0); MONOCYTES % (AUTO) 5.1 % (2.0-9.0); NEUTROPHILS # (AUTO) 4.6 K/uL (1.8-7.7); NEUTROPHILS % (AUTO) 63.2 % (40.0-70.0); PLATELET COUNT (AUTO) 306 K/uL (150-450); RED BLOOD CELL COUNT(AUTO) 5.25 MIL/uL (4.50-5.90); RED CELL DISTRIBUTION WIDTH 12.9 % (11.5-14.5)
[2019-03-07 08:54] LABS: HEMOGLOBIN A1C 5.4 % (4.5-6.2)
[2019-03-07 08:58] LABS: ALANINE AMINOTRANSFERASE 22 U/L (12-78); ALKALINE PHOSPHATASE 76 U/L (46-116); ANION GAP 6 mmol/L (8-16); ASPARTATE AMINOTRANSFERASE 15 U/L (15-37); BILIRUBIN,TOTAL 0.6 mg/dL (0.1-1.0); CALCIUM, TOTAL 9.2 mg/dL (8.8-10.5); CARBON DIOXIDE 32 mmol/L (22-29); CHLORIDE 103 mmol/L (98-107); CHOL/HDL RATIO 4.5 (4.2-7.3); CHOLESTEROL 161 mg/dL (131-200); CREATININE 0.84 mg/dL (0.60-1.30); FREE T4 (FREE THYROXINE) 1.22 ng/dL (0.76-1.46); GLOMERULAR FILTR. RATE CALC > 60 mL/min (>60); GLUCOSE,RANDOM 108 mg/dL (70-110); HDL CHOLESTEROL 36 mg/dL (40-60); LDL CHOL (CALC.) 96 mg/dL (0-130); POTASSIUM 4.1 mmol/L (3.5-5.1); SODIUM SERUM 141 mmol/L (136-145); THYROID STIMULATING HORMONE 1.08 uIU/mL (0.36-3.74); TRIGLYCERIDES 143 mg/dL (15-150); UREA NITROGEN, BLOOD 17 mg/dL (7-18)
[2019-03-07] MEDS: OLANZapine 7.5 MG TABLET PO SCH ×2 (10:00→20:34)
[2019-03-07] MEDS ORDERED: CloNIDine HCL 0.1 MG TABLET PO PRN (15:15)
[2019-03-07] MEDS ORDERED: ACETAMINOPHEN 325 MG TABLET PO PRN (15:15)
[2019-03-07] MEDS ORDERED: MAGNESIUM HYDROXIDE SUSPENSION 30 ML UDCUP PO PRN (15:15)
[2019-03-07] MEDS ORDERED: LOPERAMIDE HCL 2 MG CAPSULE PO PRN (15:15)
[2019-03-07] MEDS ORDERED: MAG HYDROX/AL HYDROX/SIMETH ES 30 ML SUSPENSION UDCUP PO PRN (15:15)
[2019-03-07] MEDS ORDERED: PETROLATUM,WHITE 28 GM JELLY TP PRN (15:15)
[2019-03-07] MEDS ORDERED: GuaiFENesin/D-METHORPHAN [SUGAR-FREE] 200-20MG/10 ML SYRUP UDCUP PO PRN (15:15)
[2019-03-07] MEDS ORDERED: ONDANSETRON HCL 4 MG TABLET PO PRN (15:15)
[2019-03-07] MEDS ORDERED: ALBUTEROL SULFATE HFA 90 MCG/PUFF 8 GM INHALER IH PRN (15:15)
[2019-03-07] MEDS ORDERED: DOCUSATE SODIUM 100 MG CAPSULE PO PRN (15:15)
[2019-03-07] MEDS ORDERED: IBUPROFEN 400 MG TABLET PO PRN (15:15)
[2019-03-07] MEDS ORDERED: NICOTINE 14 MG/24 HOUR PATCH TD PRN (15:15)
[2019-03-07 17:57] VITALS: BP 117/72
[2019-03-07] MEDS: MIRTAZAPINE 15 MG TABLET PO SCH (20:34)
[2019-03-08 08:10] VITALS: BP 98/73
[2019-03-08] MEDS: OLANZapine 7.5 MG TABLET PO SCH ×2 (08:28→20:23)
[2019-03-08 16:52] VITALS: BP 111/76
[2019-03-08] MEDS: MIRTAZAPINE 15 MG TABLET PO SCH (20:23)
[2019-03-09 08:00] VITALS: BP 132/77
[2019-03-09] MEDS: OLANZapine 7.5 MG TABLET PO SCH ×2 (09:13→20:29)
[2019-03-09 16:30] VITALS: BP 114/72
[2019-03-09] MEDS: MIRTAZAPINE 15 MG TABLET PO SCH (20:29)
[2019-03-10 08:00] VITALS: BP 129/92
[2019-03-10] MEDS: OLANZapine 7.5 MG TABLET PO SCH ×2 (10:11→20:37)
[2019-03-10 19:00] VITALS: BP 118/84
[2019-03-10] MEDS: MIRTAZAPINE 15 MG TABLET PO SCH (20:36)
[2019-03-11 08:00] VITALS: BP 125/81
[2019-03-11] MEDS: OLANZapine 7.5 MG TABLET PO SCH (08:26)
[2019-03-11] MEDS ORDERED: MIRT15 PO (09:21)
[2019-03-11] MEDS ORDERED: OLAN7.5T9 PO (09:21)
== END 2019-03-11 15:24 | disposition home or self-care (01) | DRG 750 ==
LOC: EMS 08:19 → 3EC 10:55
DX: F25.1 Schizoaffective disorder, depressive type (principal); R45.851 Suicidal ideations; F15.20 Other stimulant dependence, uncomplicated; E78.5 Hyperlipidemia, unspecified; Z91.5 Personal history of self-harm; F12.20 Cannabis dependence, uncomplicated; F17.200 Nicotine dependence, unspecified, uncomplicated; F10.10 Alcohol abuse, uncomplicated; Z79.899 Other long term (current) drug therapy
CPT/HCPCS: 83036; 84439; 84443; G0480; J2060

== ENCOUNTER 2019-03-17 08:13 | Emergency (ER) | payer MEDICAID, OTHER ==
[~2019-03-17] VITALS: Ht 182.9 cm; Wt 72.7 kg
[~2019-03-17 08:13] MED LIST changes: -OLAN5TAB27 PO; +OLAN7.5T9 PO
[2019-03-17 08:31] LABS: GLUCOSE,POINT OF CARE 98 MG/DL (70-110)
[2019-03-17 12:53] LABS: AMPHET/METH SCREEN,URINE POSITIVE (NEGATIVE); BARBITURATE SCREEN, URINE NEGATIVE (NEGATIVE); BENZODIAZEPINES SCREEN,URINE NEGATIVE (NEGATIVE); CANNABINOID SCREEN,URINE POSITIVE (NEGATIVE); COCAINE SCREEN,URINE NEGATIVE (NEGATIVE); METHADONE SCREEN, URINE NEGATIVE (NEGATIVE); OPIATE SCREEN,URINE NEGATIVE (NEGATIVE); PHENCYCLIDINE SCREEN,URINE NEGATIVE (NEGATIVE)
[2019-03-17 12:59] LABS: BASOPHILS % (AUTO) 0.5 % (0.0-2.0); EOSINOPHILS % (AUTO) 4.6 % (1.0-6.0); HEMATOCRIT 46.1 % (41-53); HEMOGLOBIN 15.7 g/dL (13.5-17.5); LYMPHOCYTES # (AUTO) 1.3 K/uL (1.0-4.8); LYMPHOCYTES % (AUTO) 17.4 % (22.0-44.0); MEAN CORPUSCULAR HEMOGLOBIN 29.9 pg (26.0-34.0); MEAN CORPUSCULAR HGB CONC 34.1 G/dL (31.0-37.0); MEAN CORPUSCULAR VOLUME 88 fL (80-100); MONOCYTES # (AUTO) 0.5 K/uL (0.1-1.0); MONOCYTES % (AUTO) 6.9 % (2.0-9.0); NEUTROPHILS # (AUTO) 5.3 K/uL (1.8-7.7); NEUTROPHILS % (AUTO) 70.6 % (40.0-70.0); PLATELET COUNT (AUTO) 292 K/uL (150-450); RED BLOOD CELL COUNT(AUTO) 5.27 MIL/uL (4.50-5.90)
[2019-03-17 13:10] LABS: ANION GAP 8 mmol/L (8-16); CARBON DIOXIDE 28 mmol/L (22-29); CHLORIDE 100 mmol/L (98-107); CREATININE 0.79 mg/dL (0.60-1.30); GLOMERULAR FILTR. RATE CALC > 60 mL/min (>60); GLUCOSE,RANDOM 95 mg/dL (70-110); POTASSIUM 4.1 mmol/L (3.5-5.1); SODIUM SERUM 136 mmol/L (136-145); UREA NITROGEN, BLOOD 16 mg/dL (7-18)
[2019-03-17 13:13] LABS: ALANINE AMINOTRANSFERASE 23 U/L (12-78); ALBUMIN 4.1 g/dL (3.4-5.0); ALKALINE PHOSPHATASE 80 U/L (46-116); ASPARTATE AMINOTRANSFERASE 22 U/L (15-37); BILIRUBIN,TOTAL 0.9 mg/dL (0.1-1.0); TOTAL PROTEIN, SERUM 8.2 g/dL (6.4-8.2)
[2019-03-17] MEDS ORDERED: HALOPERIDOL LACTATE 5 MG/ML VIAL IM ONE (13:45)
[2019-03-17] MEDS ORDERED: LORazepam 2 MG/ML VIAL IM ONE (13:45)
[2019-03-17 15:47] VITALS: BP 110/77
[2019-04-08] MEDS ORDERED: MIRT15 PO (14:22)
== END 2019-03-17 16:03 | disposition home or self-care (01) ==
LOC: EMS 08:13
DX: R41.82 Altered mental status, unspecified (principal); R45.851 Suicidal ideations; F15.10 Other stimulant abuse, uncomplicated; F20.9 Schizophrenia, unspecified; F17.210 Nicotine dependence, cigarettes, uncomplicated; F14.90 Cocaine use, unspecified, uncomplicated; F12.90 Cannabis use, unspecified, uncomplicated
CPT/HCPCS: 36415; 80053; 80307; 82962; 85025; 96372; 99284; 99406; G0480; J1630; J2060

== ENCOUNTER 2019-03-23 11:45 | Inpatient (IN) | payer MEDICAID, OTHER ==
[~2019-03-23] VITALS: Ht 175.3 cm; Wt 78.2 kg
[2019-03-23] MEDS ORDERED: ZOLPIDEM TARTRATE 10 MG TABLET PO PRN (13:45)
[2019-03-23] MEDS ORDERED: HALOPERIDOL 5 MG TABLET PO PRN (13:45)
[2019-03-23 17:15] VITALS: BP 132/86
[2019-03-23] MEDS ORDERED: PETROLATUM,WHITE 28 GM JELLY TP PRN (20:30)
[2019-03-23] MEDS ORDERED: ONDANSETRON HCL 4 MG TABLET PO PRN (20:30)
[2019-03-23] MEDS ORDERED: DOCUSATE SODIUM 100 MG CAPSULE PO PRN (20:30)
[2019-03-23] MEDS ORDERED: ACETAMINOPHEN 325 MG TABLET PO PRN (20:30)
[2019-03-23] MEDS ORDERED: GuaiFENesin/D-METHORPHAN [SUGAR-FREE] 200-20MG/10 ML SYRUP UDCUP PO PRN (20:30)
[2019-03-23] MEDS ORDERED: CloNIDine HCL 0.1 MG TABLET PO PRN (20:30)
[2019-03-23] MEDS ORDERED: ALBUTEROL SULFATE HFA 90 MCG/PUFF 8 GM INHALER IH PRN (20:30)
[2019-03-23] MEDS ORDERED: MAGNESIUM HYDROXIDE SUSPENSION 30 ML UDCUP PO PRN (20:30)
[2019-03-23] MEDS ORDERED: IBUPROFEN 400 MG TABLET PO PRN (20:30)
[2019-03-23] MEDS ORDERED: LOPERAMIDE HCL 2 MG CAPSULE PO PRN (20:30)
[2019-03-23] MEDS ORDERED: MAG HYDROX/AL HYDROX/SIMETH ES 30 ML SUSPENSION UDCUP PO PRN (20:30)
[2019-03-23] MEDS ORDERED: NICOTINE 14 MG/24 HOUR PATCH TD PRN (20:30)
[2019-03-24 00:48] VITALS: BP 139/90
[2019-03-24 08:12] VITALS: BP 130/82
[2019-03-24] MEDS: LORazepam 2 MG TABLET PO PRN (09:37)
[2019-03-24 16:07] VITALS: BP 119/77
[2019-03-24] MEDS: OLANZapine 7.5 MG TABLET PO SCH (20:56)
[2019-03-24] MEDS ORDERED: MIRTAZAPINE 15 MG TABLET PO SCH (21:00)
[2019-03-25 06:44] VITALS: BP 109/58
[2019-03-25] MEDS: OLANZapine 7.5 MG TABLET PO SCH (08:25)
[2019-03-25] MEDS ORDERED: MIRT15 PO (11:34)
[2019-03-25] MEDS ORDERED: OLAN7.5T9 PO (11:34)
[2019-03-25 16:01] VITALS: BP 108/65
[2019-03-25] MEDS: LORazepam 2 MG TABLET PO PRN (16:08)
[2019-04-08] MEDS ORDERED: MIRT15 PO (14:22)
== END 2019-03-25 17:24 | disposition home or self-care (01) | DRG 750 ==
LOC: EMS 11:46 → B3A 17:29
DX: F25.1 Schizoaffective disorder, depressive type (principal); E78.5 Hyperlipidemia, unspecified; F17.200 Nicotine dependence, unspecified, uncomplicated; Z71.6 Tobacco abuse counseling; Z53.20 Procedure and treatment not carried out because of patient's decision for unspecified reasons; F10.10 Alcohol abuse, uncomplicated; Z71.41 Alcohol abuse counseling and surveillance of alcoholic; F15.90 Other stimulant use, unspecified, uncomplicated; F41.9 Anxiety disorder, unspecified; F19.10 Other psychoactive substance abuse, uncomplicated
CPT/HCPCS: 87081

== ENCOUNTER 2019-04-04 17:41 | Inpatient (IN) | payer MEDICAID, OTHER ==
[~2019-04-04] VITALS: Ht 177.8 cm; Wt 70.9 kg
[~2019-04-04 17:41] MED LIST changes: +MIRT-92 PO; -MIRT15 PO
[2019-04-04] MEDS ORDERED: RISP.5 PO (17:55)
[2019-04-04] MEDS ORDERED: HALOPERIDOL 5 MG TABLET PO ONE (19:45)
[2019-04-04 20:03] LABS: BASOPHILS % (AUTO) 0.7 % (0.0-2.0); EOSINOPHILS % (AUTO) 8.7 % (1.0-6.0); LYMPHOCYTES # (AUTO) 2.2 K/uL (1.0-4.8); LYMPHOCYTES % (AUTO) 27.7 % (22.0-44.0); MEAN CORPUSCULAR HEMOGLOBIN 29.9 pg (26.0-34.0); MEAN CORPUSCULAR HGB CONC 34.3 G/dL (31.0-37.0); MEAN CORPUSCULAR VOLUME 87 fL (80-100); MONOCYTES # (AUTO) 0.5 K/uL (0.1-1.0); NEUTROPHILS # (AUTO) 4.4 K/uL (1.8-7.7); NEUTROPHILS % (AUTO) 55.9 % (40.0-70.0); PLATELET COUNT (AUTO) 248 K/uL (150-450); RED CELL DISTRIBUTION WIDTH 13.1 % (11.5-14.5)
[2019-04-04 20:07] LABS: ANION GAP 7 mmol/L (8-16); CALCIUM, TOTAL 8.4 mg/dL (8.8-10.5); CARBON DIOXIDE 27 mmol/L (22-29); CHLORIDE 104 mmol/L (98-107); GLOMERULAR FILTR. RATE CALC > 60 mL/min (>60); GLUCOSE,RANDOM 96 mg/dL (70-110); POTASSIUM 3.6 mmol/L (3.5-5.1); SODIUM SERUM 138 mmol/L (136-145); UREA NITROGEN, BLOOD 13 mg/dL (7-18)
[2019-04-04 20:12] LABS: ALANINE AMINOTRANSFERASE 23 U/L (12-78); ALBUMIN 3.4 g/dL (3.4-5.0); ALKALINE PHOSPHATASE 72 U/L (46-116); ASPARTATE AMINOTRANSFERASE 16 U/L (15-37); BILIRUBIN,TOTAL 0.2 mg/dL (0.1-1.0); TOTAL PROTEIN, SERUM 6.9 g/dL (6.4-8.2)
[2019-04-04] MEDS ORDERED: QUEtiapine FUMARATE 100 MG TABLET PO PRN (20:30)
[2019-04-04 21:05] LABS: AMPHET/METH SCREEN,URINE NEGATIVE (NEGATIVE); BARBITURATE SCREEN, URINE NEGATIVE (NEGATIVE); BENZODIAZEPINES SCREEN,URINE NEGATIVE (NEGATIVE); CANNABINOID SCREEN,URINE POSITIVE (NEGATIVE); COCAINE SCREEN,URINE NEGATIVE (NEGATIVE); METHADONE SCREEN, URINE NEGATIVE (NEGATIVE); OPIATE SCREEN,URINE NEGATIVE (NEGATIVE)
[2019-04-04 21:08] LABS: PHENCYCLIDINE SCREEN,URINE NEGATIVE (NEGATIVE)
[2019-04-05 03:04] VITALS: BP 120/80
[2019-04-05 08:06] VITALS: BP 118/86
[2019-04-05] MEDS: RisperiDONE 1 MG TABLET PO SCH (16:00)
[2019-04-05 16:20] VITALS: BP 112/60
[2019-04-05] MEDS ORDERED: DOCUSATE SODIUM 100 MG CAPSULE PO PRN (18:45)
[2019-04-05] MEDS ORDERED: OMEPRAZOLE 20 MG CAPSULE PO PRN (18:45)
[2019-04-05] MEDS ORDERED: LOPERAMIDE HCL 2 MG CAPSULE PO PRN (18:45)
[2019-04-05] MEDS ORDERED: PETROLATUM,WHITE 28 GM JELLY TP PRN (18:45)
[2019-04-05] MEDS ORDERED: BACITRACIN 28.4 GM OINTMENT TP PRN (18:45)
[2019-04-05] MEDS ORDERED: BENZOCAINE/MENTHOL LOZENGE MM PRN (18:45)
[2019-04-05] MEDS ORDERED: MAGNESIUM HYDROXIDE SUSPENSION 30 ML UDCUP PO PRN (18:45)
[2019-04-05] MEDS ORDERED: ACETAMINOPHEN 325 MG TABLET PO PRN (18:45)
[2019-04-05] MEDS ORDERED: ONDANSETRON HCL 4 MG TABLET PO PRN (18:45)
[2019-04-05] MEDS ORDERED: IBUPROFEN 600 MG TABLET PO PRN (18:45)
[2019-04-05] MEDS ORDERED: CloNIDine HCL 0.1 MG TABLET PO PRN (18:45)
[2019-04-05] MEDS ORDERED: ALBUTEROL SULFATE HFA 90 MCG/PUFF 8 GM INHALER IH PRN (18:45)
[2019-04-05] MEDS ORDERED: MAG HYDROX/AL HYDROX/SIMETH ES 30 ML SUSPENSION UDCUP PO PRN (18:45)
[2019-04-05] MEDS: MIRTAZAPINE 15 MG TABLET PO SCH (20:59)
[2019-04-06 06:42] VITALS: BP 117/85
[2019-04-06] MEDS: RisperiDONE 1 MG TABLET PO SCH (08:12)
[2019-04-06 16:08] VITALS: BP 123/74
[2019-04-06] MEDS: LORazepam 2 MG TABLET PO PRN (16:37)
[2019-04-06] MEDS: OLANZapine 7.5 MG TABLET PO SCH (20:48)
[2019-04-06] MEDS: ZOLPIDEM TARTRATE 10 MG TABLET PO PRN (20:48)
[2019-04-06] MEDS: MIRTAZAPINE 15 MG TABLET PO SCH (20:48)
[2019-04-07 06:19] VITALS: BP 106/75
[2019-04-07] MEDS: OLANZapine 7.5 MG TABLET PO SCH ×2 (08:19→20:45)
[2019-04-07 16:06] VITALS: BP 122/75
[2019-04-07] MEDS: LORazepam 2 MG TABLET PO PRN (16:34)
[2019-04-07] MEDS: MIRTAZAPINE 15 MG TABLET PO SCH (20:45)
[2019-04-07] MEDS: ZOLPIDEM TARTRATE 10 MG TABLET PO PRN (20:46)
[2019-04-08 04:37] VITALS: BP 127/82
[2019-04-08 08:02] VITALS: BP 118/70
[2019-04-08] MEDS: OLANZapine 7.5 MG TABLET PO SCH (08:06)
[2019-04-08] MEDS ORDERED: OLAN7.5T9 PO (14:22)
[2019-04-08] MEDS ORDERED: MIRT-92 PO (14:22)
[2019-04-08 16:02] VITALS: BP 125/72
== END 2019-04-08 17:45 | disposition home or self-care (01) | DRG 750 ==
LOC: EMS 17:43 → B3A 04-05 00:30
PROVIDERS: ADMIT Psychiatry & Neurology Psychiatry
DX: F25.1 Schizoaffective disorder, depressive type (principal); R45.851 Suicidal ideations; Z91.14 Patient's other noncompliance with medication regimen; E78.5 Hyperlipidemia, unspecified; F15.90 Other stimulant use, unspecified, uncomplicated; F17.200 Nicotine dependence, unspecified, uncomplicated; F41.9 Anxiety disorder, unspecified; G47.00 Insomnia, unspecified; Z79.899 Other long term (current) drug therapy
CPT/HCPCS: 87081; G0480

== ENCOUNTER 2019-04-29 12:50 | Inpatient (IN) | payer MEDICAID, OTHER ==
[~2019-04-29] VITALS: Ht 177.8 cm; Wt 66.7 kg
[2019-04-29] MEDS ORDERED: ZOLPIDEM TARTRATE 10 MG TABLET PO PRN (15:15)
[2019-04-29] MEDS ORDERED: HALOPERIDOL 5 MG TABLET PO PRN (15:15)
[2019-04-29] MEDS ORDERED: LORazepam 2 MG TABLET PO PRN (15:15)
[2019-04-29 19:16] VITALS: BP 119/78
[2019-04-30] MEDS ORDERED: INFLUENZA VIRUS VACCINE QVS 2019-20 (3YR+)/PF 60 MCG/0.5 ML SYRINGE IM ONE (06:00)
[2019-04-30] MEDS ORDERED: GuaiFENesin/D-METHORPHAN [SUGAR-FREE] 200-20MG/10 ML SYRUP UDCUP PO PRN (07:45)
[2019-04-30] MEDS ORDERED: NICOTINE 14 MG/24 HOUR PATCH TD PRN (07:45)
[2019-04-30] MEDS ORDERED: LOPERAMIDE HCL 2 MG CAPSULE PO PRN (07:45)
[2019-04-30] MEDS ORDERED: ONDANSETRON HCL 4 MG TABLET PO PRN (07:45)
[2019-04-30] MEDS ORDERED: MAGNESIUM HYDROXIDE SUSPENSION 30 ML UDCUP PO PRN (07:45)
[2019-04-30] MEDS ORDERED: ALBUTEROL SULFATE HFA 90 MCG/PUFF 8 GM INHALER IH PRN (07:45)
[2019-04-30] MEDS ORDERED: DOCUSATE SODIUM 100 MG CAPSULE PO PRN (07:45)
[2019-04-30] MEDS ORDERED: MAG HYDROX/AL HYDROX/SIMETH ES 30 ML SUSPENSION UDCUP PO PRN (07:45)
[2019-04-30] MEDS ORDERED: ACETAMINOPHEN 325 MG TABLET PO PRN (07:45)
[2019-04-30] MEDS ORDERED: PETROLATUM,WHITE 28 GM JELLY TP PRN (07:45)
[2019-04-30] MEDS ORDERED: CloNIDine HCL 0.1 MG TABLET PO PRN (07:45)
[2019-04-30 08:28] VITALS: BP 113/69
[2019-04-30] MEDS: BACITRACIN 28.4 GM OINTMENT TP SCH ×2 (09:06→17:00)
[2019-04-30 12:06] LABS: APPEARANCE,URINE TURBID (CLEAR); BILIRUBIN,URINE NEGATIVE (NEGATIVE); GLUCOSE, URINE (UA) NEGATIVE (NEGATIVE); KETONES,URINE NEGATIVE (NEGATIVE); LEUKOCYTE ESTERASE ,URINE NEGATIVE (NEGATIVE); NITRATE,URINE NEGATIVE (NEGATIVE); OCCULT BLOOD,URINE NEGATIVE (NEGATIVE); PROTEIN,URINE NEGATIVE (NEGATIVE)
[2019-04-30 12:41] LABS: AMPHET/METH SCREEN,URINE NEGATIVE (NEGATIVE); BARBITURATE SCREEN, URINE NEGATIVE (NEGATIVE); BENZODIAZEPINES SCREEN,URINE NEGATIVE (NEGATIVE); CANNABINOID SCREEN,URINE POSITIVE (NEGATIVE); COCAINE SCREEN,URINE NEGATIVE (NEGATIVE); METHADONE SCREEN, URINE NEGATIVE (NEGATIVE); OPIATE SCREEN,URINE NEGATIVE (NEGATIVE)
[2019-04-30 12:52] LABS: PHENCYCLIDINE SCREEN,URINE NEGATIVE (NEGATIVE)
[2019-04-30] MEDS: RisperiDONE 2 MG TABLET PO SCH ×2 (13:12→20:23)
[2019-04-30 16:42] VITALS: BP_SYST 115; BP_SYST 135; BP_DIAS 65; BP_DIAS 81
[2019-04-30] MEDS: MIRTAZAPINE 15 MG TABLET PO SCH (20:23)
[2019-05-01] MEDS: RisperiDONE 2 MG TABLET PO SCH ×2 (08:39→20:20)
[2019-05-01] MEDS: BACITRACIN 28.4 GM OINTMENT TP SCH ×2 (08:40→16:25)
[2019-05-01 09:05] VITALS: BP 125/76
[2019-05-01] MEDS: IBUPROFEN 400 MG TABLET PO PRN (14:17)
[2019-05-01 16:10] VITALS: BP 116/79
[2019-05-01] MEDS: MIRTAZAPINE 15 MG TABLET PO SCH (20:20)
[2019-05-02] MEDS: RisperiDONE 2 MG TABLET PO SCH ×2 (08:36→20:45)
[2019-05-02] MEDS: BACITRACIN 28.4 GM OINTMENT TP SCH ×2 (08:37→17:06)
[2019-05-02] MEDS ORDERED: PALIPERIDONE PALMITATE 234 MG/1.5 ML SYRINGE IM ONE (09:00)
[2019-05-02 09:25] VITALS: BP 125/74
[2019-05-02 13:56] VITALS: BP 115/72
[2019-05-02] MEDS: IBUPROFEN 400 MG TABLET PO PRN (13:56)
[2019-05-02 17:08] VITALS: BP 127/76
[2019-05-02] MEDS: MIRTAZAPINE 15 MG TABLET PO SCH (20:45)
[2019-05-03] MEDS: BACITRACIN 28.4 GM OINTMENT TP SCH ×2 (08:22→16:38)
[2019-05-03] MEDS: RisperiDONE 2 MG TABLET PO SCH ×2 (08:22→20:30)
[2019-05-03 08:45] VITALS: BP 122/65
[2019-05-03 16:17] VITALS: BP 122/75
[2019-05-03] MEDS: MIRTAZAPINE 15 MG TABLET PO SCH (20:30)
[2019-05-04] MEDS: RisperiDONE 2 MG TABLET PO SCH ×2 (08:10→20:46)
[2019-05-04] MEDS: BACITRACIN 28.4 GM OINTMENT TP SCH ×2 (08:11→16:35)
[2019-05-04 09:44] VITALS: BP 128/68
[2019-05-04 16:31] VITALS: BP 120/75
[2019-05-04] MEDS: MIRTAZAPINE 15 MG TABLET PO SCH (20:46)
[2019-05-05 08:10] VITALS: BP 127/78
[2019-05-05] MEDS: BACITRACIN 28.4 GM OINTMENT TP SCH ×2 (09:03→17:47)
[2019-05-05] MEDS: RisperiDONE 2 MG TABLET PO SCH ×2 (09:03→20:19)
[2019-05-05 16:30] VITALS: BP 122/77
[2019-05-05] MEDS: MIRTAZAPINE 15 MG TABLET PO SCH (20:19)
[2019-05-06 01:01] VITALS: BP 136/90
[2019-05-06 08:00] VITALS: BP 119/91
[2019-05-06] MEDS ORDERED: RISP2 PO ×2 (08:55→12:59)
[2019-05-06] MEDS ORDERED: MIRT15TA6 PO (08:55)
[2019-05-06] MEDS ORDERED: PALI234D IM ×2 (08:55→12:59)
[2019-05-06] MEDS ORDERED: PALIPERIDONE PALMITATE 156 MG/ML SYRINGE IM ONE (09:00)
[2019-05-06] MEDS: RisperiDONE 2 MG TABLET PO SCH (09:33)
[2019-05-06] MEDS: BACITRACIN 28.4 GM OINTMENT TP SCH (09:33)
[2019-05-06] MEDS ORDERED: MIRT-92 PO (12:59)
== END 2019-05-06 15:11 | disposition home or self-care (01) | DRG 885 ==
LOC: EMS 12:53 → 3EC 16:37
DX: F25.1 Schizoaffective disorder, depressive type (principal); R45.851 Suicidal ideations; F10.10 Alcohol abuse, uncomplicated; F12.20 Cannabis dependence, uncomplicated; F14.90 Cocaine use, unspecified, uncomplicated; G47.00 Insomnia, unspecified; F17.210 Nicotine dependence, cigarettes, uncomplicated; R00.0 Tachycardia, unspecified; F41.9 Anxiety disorder, unspecified; R45.850 Homicidal ideations; F32.9 Major depressive disorder, single episode, unspecified; Z59.0 Homelessness; Z79.899 Other long term (current) drug therapy; Z91.5 Personal history of self-harm; Z71.41 Alcohol abuse counseling and surveillance of alcoholic; Z71.51 Drug abuse counseling and surveillance of drug abuser
CPT/HCPCS: 80307; 87081

== ENCOUNTER 2019-05-25 11:43 | Inpatient (IN) | payer MEDICAID, OTHER ==
[~2019-05-25] VITALS: Ht 175.3 cm; Wt 68.6 kg
[~2019-05-25 11:43] MED LIST changes: -OLAN7.5T9 PO; +PALI234D IM; +RISP2 PO
[2019-05-25 12:12] LABS: BASOPHILS % (AUTO) 0.6 % (0.0-2.0); EOSINOPHILS % (AUTO) 8.9 % (1.0-6.0); HEMATOCRIT 41.8 % (41-53); HEMOGLOBIN 14.4 g/dL (13.5-17.5); LYMPHOCYTES # (AUTO) 1.3 K/uL (1.0-4.8); LYMPHOCYTES % (AUTO) 22.2 % (22.0-44.0); MEAN CORPUSCULAR HEMOGLOBIN 29.7 pg (26.0-34.0); MEAN CORPUSCULAR HGB CONC 34.4 G/dL (31.0-37.0); MEAN CORPUSCULAR VOLUME 86 fL (80-100); MONOCYTES # (AUTO) 0.4 K/uL (0.1-1.0); MONOCYTES % (AUTO) 7.6 % (2.0-9.0); NEUTROPHILS # (AUTO) 3.4 K/uL (1.8-7.7); NEUTROPHILS % (AUTO) 60.7 % (40.0-70.0); PLATELET COUNT (AUTO) 274 K/uL (150-450); RED BLOOD CELL COUNT(AUTO) 4.84 MIL/uL (4.50-5.90); RED CELL DISTRIBUTION WIDTH 12.9 % (11.5-14.5)
[2019-05-25 12:21] LABS: CHLORIDE 102 mmol/L (98-107); SODIUM SERUM 140 mmol/L (136-145)
[2019-05-25 12:22] LABS: ANION GAP 9 mmol/L (8-16); CALCIUM, TOTAL 8.8 mg/dL (8.8-10.5); CARBON DIOXIDE 29 mmol/L (22-29); CREATININE 0.72 mg/dL (0.60-1.30); GLOMERULAR FILTR. RATE CALC > 60 mL/min (>60); GLUCOSE,RANDOM 76 mg/dL (70-110); UREA NITROGEN, BLOOD 14 mg/dL (7-18)
[2019-05-25 12:26] LABS: ALANINE AMINOTRANSFERASE 21 U/L (12-78); ALBUMIN 3.9 g/dL (3.4-5.0); ALKALINE PHOSPHATASE 81 U/L (46-116); ASPARTATE AMINOTRANSFERASE 13 U/L (15-37); BILIRUBIN,TOTAL 0.2 mg/dL (0.1-1.0); TOTAL PROTEIN, SERUM 7.4 g/dL (6.4-8.2)
[2019-05-25 13:31] LABS: AMPHET/METH SCREEN,URINE NEGATIVE (NEGATIVE); BARBITURATE SCREEN, URINE NEGATIVE (NEGATIVE); BENZODIAZEPINES SCREEN,URINE NEGATIVE (NEGATIVE); CANNABINOID SCREEN,URINE NEGATIVE (NEGATIVE); COCAINE SCREEN,URINE NEGATIVE (NEGATIVE); METHADONE SCREEN, URINE NEGATIVE (NEGATIVE); OPIATE SCREEN,URINE NEGATIVE (NEGATIVE); PHENCYCLIDINE SCREEN,URINE NEGATIVE (NEGATIVE)
[2019-05-25] MEDS ORDERED: LORazepam 2 MG TABLET PO PRN (16:30)
[2019-05-25] MEDS ORDERED: HALOPERIDOL 5 MG TABLET PO PRN (16:30)
[2019-05-25] MEDS ORDERED: ZOLPIDEM TARTRATE 10 MG TABLET PO PRN (16:30)
[2019-05-25 20:00] VITALS: BP 118/78
[2019-05-25] MEDS ORDERED: INFLUENZA VIRUS VACCINE QVS 2019-20 (3YR+)/PF 60 MCG/0.5 ML SYRINGE IM ONE (20:45)
[2019-05-26 08:40] VITALS: BP 124/99
[2019-05-26] MEDS: RisperiDONE 2 MG TABLET PO SCH ×2 (12:58→20:50)
[2019-05-26] MEDS ORDERED: PETROLATUM,WHITE 28 GM JELLY TP PRN (13:00)
[2019-05-26] MEDS ORDERED: GuaiFENesin/D-METHORPHAN [SUGAR-FREE] 200-20MG/10 ML SYRUP UDCUP PO PRN (13:00)
[2019-05-26] MEDS ORDERED: DOCUSATE SODIUM 100 MG CAPSULE PO PRN (13:00)
[2019-05-26] MEDS ORDERED: MAG HYDROX/AL HYDROX/SIMETH ES 30 ML SUSPENSION UDCUP PO PRN (13:00)
[2019-05-26] MEDS ORDERED: ONDANSETRON HCL 4 MG TABLET PO PRN (13:00)
[2019-05-26] MEDS ORDERED: MAGNESIUM HYDROXIDE SUSPENSION 30 ML UDCUP PO PRN (13:00)
[2019-05-26] MEDS ORDERED: NICOTINE 14 MG/24 HOUR PATCH TD PRN (13:00)
[2019-05-26] MEDS ORDERED: ACETAMINOPHEN 325 MG TABLET PO PRN (13:00)
[2019-05-26] MEDS ORDERED: CloNIDine HCL 0.1 MG TABLET PO PRN (13:00)
[2019-05-26] MEDS ORDERED: ALBUTEROL SULFATE HFA 90 MCG/PUFF 8 GM INHALER IH PRN (13:00)
[2019-05-26] MEDS ORDERED: LOPERAMIDE HCL 2 MG CAPSULE PO PRN (13:00)
[2019-05-26] MEDS: IBUPROFEN 400 MG TABLET PO PRN (14:55)
[2019-05-26 16:19] VITALS: BP 114/79
[2019-05-26] MEDS: MIRTAZAPINE 15 MG TABLET PO SCH (20:50)
[2019-05-27] MEDS: RisperiDONE 2 MG TABLET PO SCH ×2 (09:13→20:45)
[2019-05-27 09:28] VITALS: BP 123/77
[2019-05-27 16:30] VITALS: BP 115/63
[2019-05-27] MEDS: MIRTAZAPINE 15 MG TABLET PO SCH (20:45)
[2019-05-28] MEDS: RisperiDONE 2 MG TABLET PO SCH ×2 (08:24→21:22)
[2019-05-28 08:55] VITALS: BP 130/79
[2019-05-28 16:00] VITALS: BP 121/78
[2019-05-28 16:16] VITALS: BP 120/70
[2019-05-28] MEDS: IBUPROFEN 400 MG TABLET PO PRN (21:08)
[2019-05-28 21:18] VITALS: BP 130/89
[2019-05-28] MEDS: MIRTAZAPINE 15 MG TABLET PO SCH (21:22)
[2019-05-29 09:21] VITALS: BP 118/75
[2019-05-29] MEDS: RisperiDONE 2 MG TABLET PO SCH (09:24)
== END 2019-05-29 16:45 | disposition home or self-care (01) | DRG 885 ==
LOC: EMS 11:43 → 3EI 17:59
PROVIDERS: ADMIT Psychiatry & Neurology Child & Adolescent Psychiatry; ATTEND Psychiatry & Neurology Child & Adolescent Psychiatry
DX: F20.0 Paranoid schizophrenia (principal); R45.851 Suicidal ideations; F14.90 Cocaine use, unspecified, uncomplicated; F12.90 Cannabis use, unspecified, uncomplicated; F10.10 Alcohol abuse, uncomplicated; F41.9 Anxiety disorder, unspecified; G47.00 Insomnia, unspecified; Z87.891 Personal history of nicotine dependence
CPT/HCPCS: 87081; G0480

== ENCOUNTER 2020-02-03 23:38 | Inpatient (IN) | payer MEDICAID, OTHER ==
[~2020-02-03] VITALS: Ht 177.8 cm; Wt 70.0 kg
[~2020-02-03 23:38] MED LIST changes: +MIRT-89 PO; -MIRT-92 PO; -RISP2 PO; +RISP2TAB23 PO
[2020-02-04 03:07] LABS: COVID AG,FIA SOURCE NASOPHARYNGEAL
[2020-02-04] MEDS ORDERED: LORazepam 2 MG TABLET PO PRN (05:30)
[2020-02-04] MEDS ORDERED: HALOPERIDOL 5 MG TABLET PO PRN (05:30)
[2020-02-04 09:30] VITALS: BP 126/84
[2020-02-04] MEDS ORDERED: INFLUENZA VIRUS VACCINE QVS 2020-21 (6MO+)/PF 60 MCG/0.5 ML SYRINGE IM ONE (11:15)
[2020-02-04] MEDS ORDERED: PNEUMOCOCCAL VACCINE POLYVALENT 0.5 ML VIAL [PPSV23] IM ONE (11:15)
[2020-02-04 16:59] VITALS: BP 126/73
[2020-02-04] MEDS: ZOLPIDEM TARTRATE 10 MG TABLET PO PRN (21:29)
[2020-02-05 01:05] VITALS: BP 127/82
[2020-02-05] MEDS ORDERED: DOCUSATE SODIUM 100 MG CAPSULE PO PRN (07:30)
[2020-02-05] MEDS ORDERED: BENZOCAINE/MENTHOL LOZENGE PO PRN (07:30)
[2020-02-05] MEDS ORDERED: ALBUTEROL SULFATE HFA 90 MCG/PUFF 8 GM INHALER IH PRN (07:30)
[2020-02-05] MEDS ORDERED: ACETAMINOPHEN 325 MG TABLET PO PRN (07:30)
[2020-02-05] MEDS ORDERED: PETROLATUM,WHITE 28 GM JELLY TP PRN (07:30)
[2020-02-05] MEDS ORDERED: CloNIDine HCL 0.1 MG TABLET PO PRN (07:30)
[2020-02-05] MEDS ORDERED: OMEPRAZOLE 20 MG CAPSULE PO PRN (07:30)
[2020-02-05] MEDS ORDERED: ONDANSETRON HCL 4 MG TABLET PO PRN (07:30)
[2020-02-05] MEDS ORDERED: BACITRACIN 28 GM OINTMENT TP PRN (07:30)
[2020-02-05] MEDS ORDERED: MAG HYDROX/AL HYDROX/SIMETH ES 30 ML SUSPENSION UDCUP PO PRN (07:30)
[2020-02-05] MEDS ORDERED: MAGNESIUM HYDROXIDE SUSPENSION 30 ML UDCUP PO PRN (07:30)
[2020-02-05] MEDS ORDERED: LOPERAMIDE HCL 2 MG CAPSULE PO PRN (07:30)
[2020-02-05] MEDS ORDERED: IBUPROFEN 600 MG TABLET PO PRN (07:30)
[2020-02-05 08:15] VITALS: BP 115/72
[2020-02-05 16:36] VITALS: BP 120/66
[2020-02-05] MEDS: RisperiDONE 3 MG TABLET PO SCH (20:39)
[2020-02-05] MEDS: ZOLPIDEM TARTRATE 10 MG TABLET PO PRN (20:39)
[2020-02-05] MEDS ORDERED: RisperiDONE 2 MG TABLET PO SCH (21:00)
[2020-02-06 01:14] VITALS: BP 117/68
[2020-02-06] MEDS: RisperiDONE 3 MG TABLET PO SCH ×2 (08:17→20:07)
[2020-02-06 08:25] VITALS: BP 129/83
[2020-02-06 16:22] VITALS: BP 126/89
[2020-02-07 02:01] VITALS: BP 128/79
[2020-02-07 08:45] VITALS: BP 121/61
[2020-02-07] MEDS: RisperiDONE 3 MG TABLET PO SCH ×2 (08:45→20:10)
[2020-02-07 16:18] VITALS: BP 125/72
[2020-02-08 00:26] VITALS: BP 117/75
[2020-02-08] MEDS ORDERED: RISP3TAB14 PO (08:23)
[2020-02-08 08:34] VITALS: BP 113/68
[2020-02-08] MEDS: RisperiDONE 3 MG TABLET PO SCH (08:34)
== END 2020-02-08 10:00 | disposition home or self-care (01) | DRG 750 ==
LOC: EMS 23:40 → B2S 02-04 05:27 → UNDOADMIN 02-04 08:28 → B2S 02-04 08:28
PROVIDERS: ADMIT Psychiatry & Neurology Psychiatry; ATTEND Psychiatry & Neurology Psychiatry
DX: F25.9 Schizoaffective disorder, unspecified (principal); F41.9 Anxiety disorder, unspecified; R45.851 Suicidal ideations; G47.00 Insomnia, unspecified; K59.00 Constipation, unspecified; F17.210 Nicotine dependence, cigarettes, uncomplicated; F19.10 Other psychoactive substance abuse, uncomplicated; Z28.21 Immunization not carried out because of patient refusal; Z79.899 Other long term (current) drug therapy
CPT/HCPCS: 87426; Z7502; Z7610

== ENCOUNTER 2020-03-02 15:55 | Emergency (ER) | payer MEDICAID, OTHER ==
[~2020-03-02] VITALS: Ht 175.3 cm; Wt 84.1 kg
[~2020-03-02 15:55] MED LIST changes: -MIRT-89 PO; -PALI234D IM; -RISP2TAB23 PO; +RISP3TAB35 PO
[2020-03-02 16:20] VITALS: BP 124/73
== END 2020-03-02 16:50 | disposition home or self-care (01) ==
LOC: EMS 15:55
DX: F20.9 Schizophrenia, unspecified (principal); F17.210 Nicotine dependence, cigarettes, uncomplicated; F15.90 Other stimulant use, unspecified, uncomplicated; F12.90 Cannabis use, unspecified, uncomplicated; F14.90 Cocaine use, unspecified, uncomplicated
CPT/HCPCS: Z7502

== ENCOUNTER 2020-03-16 14:10 | Emergency (ER) | payer OTHER ==
[~2020-03-16] VITALS: Ht 177.8 cm; Wt 81.8 kg
[2020-03-16] MEDS ORDERED: SODIUM CHLORIDE 0.9% 1,000 ML IV ONE (15:30)
[2020-03-16 16:09] LABS: BASOPHILS % (AUTO) 0.4 % (0.0-2.0); EOSINOPHILS % (AUTO) 4.8 % (1.0-6.0); HEMATOCRIT 44.4 % (41-53); LYMPHOCYTES # (AUTO) 1.1 K/uL (1.0-4.8); LYMPHOCYTES % (AUTO) 19.1 % (22.0-44.0); MEAN CORPUSCULAR HEMOGLOBIN 29.9 pg (26.0-34.0); MEAN CORPUSCULAR HGB CONC 33.9 G/dL (31.0-37.0); MEAN CORPUSCULAR VOLUME 88 fL (80-100); MONOCYTES # (AUTO) 0.4 K/uL (0.1-1.0); MONOCYTES % (AUTO) 7.5 % (2.0-9.0); NEUTROPHILS # (AUTO) 3.9 K/uL (1.8-7.7); NEUTROPHILS % (AUTO) 68.2 % (40.0-70.0); PLATELET COUNT (AUTO) 264 K/uL (150-450); RED BLOOD CELL COUNT(AUTO) 5.04 MIL/uL (4.50-5.90); RED CELL DISTRIBUTION WIDTH 12.9 % (11.5-14.5)
[2020-03-16 16:26] LABS: AMPHET/METH SCREEN,URINE NEGATIVE (NEGATIVE); BARBITURATE SCREEN, URINE NEGATIVE (NEGATIVE); BENZODIAZEPINES SCREEN,URINE NEGATIVE (NEGATIVE); CANNABINOID SCREEN,URINE NEGATIVE (NEGATIVE); COCAINE SCREEN,URINE NEGATIVE (NEGATIVE); METHADONE SCREEN, URINE NEGATIVE (NEGATIVE); OPIATE SCREEN,URINE NEGATIVE (NEGATIVE)
[2020-03-16 16:35] LABS: ANION GAP 11 mmol/L (8-16); CALCIUM, TOTAL 8.8 mg/dL (8.8-10.5); CARBON DIOXIDE 28 mmol/L (22-29); CHLORIDE 104 mmol/L (98-107); CREATININE 0.78 mg/dL (0.60-1.30); GLOMERULAR FILTR. RATE CALC > 60 mL/min (>60); GLUCOSE,RANDOM 99 mg/dL (70-110); PHENCYCLIDINE SCREEN,URINE NEGATIVE (NEGATIVE); POTASSIUM 3.6 mmol/L (3.5-5.1); SODIUM SERUM 143 mmol/L (136-145); UREA NITROGEN, BLOOD 10 mg/dL (7-18)
[2020-03-16 16:40] LABS: ALANINE AMINOTRANSFERASE 42 U/L (12-78); ALBUMIN 3.9 g/dL (3.4-5.0); ALKALINE PHOSPHATASE 100 U/L (46-116); ASPARTATE AMINOTRANSFERASE 26 U/L (15-37); BILIRUBIN,TOTAL 0.3 mg/dL (0.1-1.0); TOTAL PROTEIN, SERUM 7.9 g/dL (6.4-8.2)
[2020-03-16 17:25] VITALS: BP 145/91
== END 2020-03-16 17:53 | disposition home or self-care (01) ==
LOC: EMS 14:14
DX: F10.129 Alcohol abuse with intoxication, unspecified (principal); F20.9 Schizophrenia, unspecified; F17.210 Nicotine dependence, cigarettes, uncomplicated; F15.90 Other stimulant use, unspecified, uncomplicated; F14.90 Cocaine use, unspecified, uncomplicated; F12.90 Cannabis use, unspecified, uncomplicated; Y90.8 Blood alcohol level of 240 mg/100 ml or more
CPT/HCPCS: 36415; 80053; 80307; 85025; 96360; 99283; G0480; J7030

== ENCOUNTER 2020-03-17 13:10 | Inpatient (IN) | payer MEDICAID, OTHER ==
[~2020-03-17] VITALS: Ht 175.3 cm; Wt 86.3 kg
[2020-03-17 15:50] LABS: BASOPHILS % (AUTO) 0.3 % (0.0-2.0); EOSINOPHILS % (AUTO) 3.4 % (1.0-6.0); HEMATOCRIT 41.2 % (41-53); HEMOGLOBIN 14.4 g/dL (13.5-17.5); LYMPHOCYTES # (AUTO) 1.7 K/uL (1.0-4.8); LYMPHOCYTES % (AUTO) 26.5 % (22.0-44.0); MEAN CORPUSCULAR HEMOGLOBIN 30.4 pg (26.0-34.0); MEAN CORPUSCULAR HGB CONC 34.9 G/dL (31.0-37.0); MEAN CORPUSCULAR VOLUME 87 fL (80-100); MONOCYTES # (AUTO) 0.5 K/uL (0.1-1.0); MONOCYTES % (AUTO) 7.2 % (2.0-9.0); NEUTROPHILS # (AUTO) 3.9 K/uL (1.8-7.7); NEUTROPHILS % (AUTO) 62.6 % (40.0-70.0); PLATELET COUNT (AUTO) 276 K/uL (150-450); RED BLOOD CELL COUNT(AUTO) 4.73 MIL/uL (4.50-5.90); RED CELL DISTRIBUTION WIDTH 13.2 % (11.5-14.5)
[2020-03-17 16:05] LABS: ANION GAP 6 mmol/L (8-16); CALCIUM, TOTAL 8.8 mg/dL (8.8-10.5); CARBON DIOXIDE 31 mmol/L (22-29); CHLORIDE 105 mmol/L (98-107); CREATININE 0.79 mg/dL (0.60-1.30); GLOMERULAR FILTR. RATE CALC > 60 mL/min (>60); GLUCOSE,RANDOM 89 mg/dL (70-110); POTASSIUM 3.6 mmol/L (3.5-5.1); SODIUM SERUM 142 mmol/L (136-145); UREA NITROGEN, BLOOD 11 mg/dL (7-18)
[2020-03-17 16:09] LABS: ALANINE AMINOTRANSFERASE 36 U/L (12-78); ALBUMIN 3.8 g/dL (3.4-5.0); ALKALINE PHOSPHATASE 95 U/L (46-116); ASPARTATE AMINOTRANSFERASE 22 U/L (15-37); BILIRUBIN,TOTAL 0.5 mg/dL (0.1-1.0); TOTAL PROTEIN, SERUM 7.6 g/dL (6.4-8.2)
[2020-03-17] MEDS ORDERED: ZOLPIDEM TARTRATE 10 MG TABLET PO PRN (18:00)
[2020-03-17] MEDS ORDERED: LORazepam 2 MG TABLET PO PRN (18:00)
[2020-03-17] MEDS ORDERED: HALOPERIDOL 5 MG TABLET PO PRN (18:00)
[2020-03-17 18:27] LABS: COVID AG,FIA SOURCE NASOPHARYNGEAL
[2020-03-17] MEDS ORDERED: ONDANSETRON HCL 4 MG TABLET PO ONE (21:00)
[2020-03-17] MEDS ORDERED: INFLUENZA VIRUS VACCINE QVS 2020-21 (6MO+)/PF 60 MCG/0.5 ML SYRINGE IM ONE (22:00)
[2020-03-17 22:23] VITALS: BP 143/83
[2020-03-18 06:15] VITALS: BP 136/81
[2020-03-18] MEDS ORDERED: NICOTINE 14 MG/24 HOUR PATCH TD PRN (07:45)
[2020-03-18] MEDS ORDERED: PETROLATUM,WHITE 28 GM JELLY TP PRN (07:45)
[2020-03-18] MEDS ORDERED: ALBUTEROL SULFATE HFA 90 MCG/PUFF 8 GM INHALER IH PRN (07:45)
[2020-03-18] MEDS ORDERED: DOCUSATE SODIUM 100 MG CAPSULE PO PRN (07:45)
[2020-03-18] MEDS ORDERED: MAG HYDROX/AL HYDROX/SIMETH ES 30 ML SUSPENSION UDCUP PO PRN (07:45)
[2020-03-18] MEDS ORDERED: ONDANSETRON HCL 4 MG TABLET PO PRN (07:45)
[2020-03-18] MEDS ORDERED: LOPERAMIDE HCL 2 MG CAPSULE PO PRN (07:45)
[2020-03-18] MEDS ORDERED: GuaiFENesin/D-METHORPHAN [SUGAR-FREE] 200-20MG/10 ML SYRUP UDCUP PO PRN (07:45)
[2020-03-18] MEDS ORDERED: CloNIDine HCL 0.1 MG TABLET PO PRN (07:45)
[2020-03-18] MEDS ORDERED: MAGNESIUM HYDROXIDE SUSPENSION 30 ML UDCUP PO PRN (07:45)
[2020-03-18] MEDS ORDERED: IBUPROFEN 400 MG TABLET PO PRN (07:45)
[2020-03-18 08:06] VITALS: BP 133/85
[2020-03-18 16:09] VITALS: BP 115/68
[2020-03-18] MEDS: ACETAMINOPHEN 325 MG TABLET PO PRN (16:35)
[2020-03-18] MEDS: RisperiDONE 3 MG TABLET PO SCH (20:15)
[2020-03-19 05:46] VITALS: BP 129/88
[2020-03-19] MEDS: RisperiDONE 3 MG TABLET PO SCH ×2 (08:32→20:50)
[2020-03-19 16:14] VITALS: BP 134/79
[2020-03-20 00:15] VITALS: BP 139/89
[2020-03-20] MEDS: ACETAMINOPHEN 325 MG TABLET PO PRN ×2 (00:19→10:27)
[2020-03-20] MEDS: RisperiDONE 3 MG TABLET PO SCH (08:07)
[2020-03-20 08:33] VITALS: BP 125/72
== END 2020-03-20 16:00 | disposition home or self-care (01) | DRG 750 ==
LOC: EMS 13:10 → B2S 19:35
PROVIDERS: ADMIT Psychiatry & Neurology Child & Adolescent Psychiatry; ATTEND Psychiatry & Neurology Child & Adolescent Psychiatry
DX: F25.0 Schizoaffective disorder, bipolar type (principal); R45.851 Suicidal ideations; R45.850 Homicidal ideations; Z91.14 Patient's other noncompliance with medication regimen; F15.90 Other stimulant use, unspecified, uncomplicated; F14.90 Cocaine use, unspecified, uncomplicated; F41.9 Anxiety disorder, unspecified; F10.10 Alcohol abuse, uncomplicated; Y90.9 Presence of alcohol in blood, level not specified; F19.10 Other psychoactive substance abuse, uncomplicated; G47.00 Insomnia, unspecified; K59.00 Constipation, unspecified; Z20.828 Contact with and (suspected) exposure to other viral communicable diseases; Z28.21 Immunization not carried out because of patient refusal
CPT/HCPCS: 87426; G0480; Q0162

== ENCOUNTER 2021-07-04 14:12 | Emergency (ER) | payer MEDICAID, OTHER ==
[~2021-07-04] VITALS: Ht 167.6 cm; Wt 75.0 kg
[2021-07-04 15:16] VITALS: BP 136/85
[2021-07-04 15:36] LABS: BASOPHILS % (AUTO) 0.2 % (0.0-2.0); EOSINOPHILS % (AUTO) 1.5 % (1.0-6.0); HEMOGLOBIN 15.6 g/dL (13.5-17.5); LYMPHOCYTES # (AUTO) 1.4 K/uL (1.0-4.8); LYMPHOCYTES % (AUTO) 13.2 % (22.0-44.0); MEAN CORPUSCULAR HEMOGLOBIN 29.6 pg (26.0-34.0); MEAN CORPUSCULAR HGB CONC 34.6 G/dL (31.0-37.0); MEAN CORPUSCULAR VOLUME 85 fL (80-100); MONOCYTES # (AUTO) 0.6 K/uL (0.1-1.0); MONOCYTES % (AUTO) 5.7 % (2.0-9.0); NEUTROPHILS # (AUTO) 8.5 K/uL (1.8-7.7); NEUTROPHILS % (AUTO) 79.4 % (40.0-70.0); PLATELET COUNT (AUTO) 306 K/uL (150-450); RED BLOOD CELL COUNT(AUTO) 5.27 MIL/uL (4.50-5.90); RED CELL DISTRIBUTION WIDTH 13.3 % (11.5-14.5)
[2021-07-04 15:48] LABS: ANION GAP 8 mmol/L (8-16); CALCIUM, TOTAL 9.7 mg/dL (8.8-10.5); CARBON DIOXIDE 29 mmol/L (22-29); CHLORIDE 98 mmol/L (98-107); CREATININE 1.05 mg/dL (0.60-1.30); GLOMERULAR FILTR. RATE CALC > 60 mL/min (>60); GLUCOSE,RANDOM 89 mg/dL (70-110); POTASSIUM 4.1 mmol/L (3.5-5.1); SODIUM SERUM 135 mmol/L (136-145); UREA NITROGEN, BLOOD 10 mg/dL (7-18)
[2021-07-04 15:55] LABS: ALANINE AMINOTRANSFERASE 19 U/L (12-78); ALBUMIN 4.3 g/dL (3.4-5.0); ALKALINE PHOSPHATASE 92 U/L (46-116); ASPARTATE AMINOTRANSFERASE 22 U/L (15-37); BILIRUBIN,TOTAL 0.8 mg/dL (0.1-1.0); TOTAL PROTEIN, SERUM 8.6 g/dL (6.4-8.2)
[2021-07-04] MEDS ORDERED: RisperiDONE 1 MG TABLET PO ONE (16:15)
[2021-07-04] MEDS ORDERED: LORazepam 2 MG TABLET PO ONE (16:15)
== END 2021-07-04 19:59 | disposition home or self-care (01) ==
LOC: EMS 14:15
DX: F20.9 Schizophrenia, unspecified (principal); F12.10 Cannabis abuse, uncomplicated; F15.10 Other stimulant abuse, uncomplicated; F14.10 Cocaine abuse, uncomplicated; Z79.899 Other long term (current) drug therapy
CPT/HCPCS: 36415; 80053; 85025; 99285; G0480

== ENCOUNTER 2021-08-27 19:25 | Inpatient (IN) | payer MEDICAID, OTHER ==
[~2021-08-27] VITALS: Ht 170.2 cm; Wt 69.4 kg
[2021-08-27 20:09] LABS: ANION GAP 12 mmol/L (8-16); CARBON DIOXIDE 24 mmol/L (22-29); CHLORIDE 103 mmol/L (98-107); CREATININE 0.74 mg/dL (0.60-1.30); GLOMERULAR FILTR. RATE CALC > 60 mL/min (>60); GLUCOSE,RANDOM 94 mg/dL (70-110); POTASSIUM 4.1 mmol/L (3.5-5.1); SODIUM SERUM 139 mmol/L (136-145); UREA NITROGEN, BLOOD 8 mg/dL (7-18)
[2021-08-27 20:14] LABS: ALANINE AMINOTRANSFERASE 15 U/L (12-78); ALBUMIN 3.9 g/dL (3.4-5.0); ASPARTATE AMINOTRANSFERASE 25 U/L (15-37); BILIRUBIN,TOTAL 0.3 mg/dL (0.1-1.0); TOTAL PROTEIN, SERUM 7.6 g/dL (6.4-8.2)
[2021-08-27 20:35] LABS: ALKALINE PHOSPHATASE 95 U/L (46-116)
[2021-08-27 20:51] LABS: COVID AG,FIA SOURCE NASOPHARYNGEAL
[2021-08-27 20:52] LABS: BASOPHILS % (AUTO) 0.6 % (0.0-2.0); EOSINOPHILS % (AUTO) 6.3 % (1.0-6.0); HEMATOCRIT 44.5 % (41-53); HEMOGLOBIN 15.5 g/dL (13.5-17.5); LYMPHOCYTES # (AUTO) 1.9 K/uL (1.0-4.8); LYMPHOCYTES % (AUTO) 22.5 % (22.0-44.0); MEAN CORPUSCULAR HGB CONC 34.9 G/dL (31.0-37.0); MEAN CORPUSCULAR VOLUME 86 fL (80-100); MONOCYTES # (AUTO) 0.5 K/uL (0.1-1.0); MONOCYTES % (AUTO) 5.6 % (2.0-9.0); NEUTROPHILS # (AUTO) 5.6 K/uL (1.8-7.7); PLATELET COUNT (AUTO) 314 K/uL (150-450); RED BLOOD CELL COUNT(AUTO) 5.17 MIL/uL (4.50-5.90); RED CELL DISTRIBUTION WIDTH 13.6 % (11.5-14.5)
[2021-08-27] MEDS ORDERED: RisperiDONE 1 MG TABLET PO ONE (21:15)
[2021-08-27] MEDS ORDERED: LORazepam 1 MG TABLET PO ONE (21:15)
[2021-08-27] MEDS ORDERED: HALOPERIDOL 5 MG TABLET PO PRN (21:30)
[2021-08-27] MEDS ORDERED: ZOLPIDEM TARTRATE 10 MG TABLET PO PRN (21:30)
[2021-08-27 23:10] LABS: APPEARANCE,URINE CLEAR (CLEAR); BILIRUBIN,URINE NEGATIVE (NEGATIVE); GLUCOSE, URINE (UA) NEGATIVE (NEGATIVE); KETONES,URINE NEGATIVE (NEGATIVE); LEUKOCYTE ESTERASE ,URINE NEGATIVE (NEGATIVE); NITRATE,URINE NEGATIVE (NEGATIVE); OCCULT BLOOD,URINE NEGATIVE (NEGATIVE); PH,URINE 5.5 (5.0-8.0); PROTEIN,URINE NEGATIVE (NEGATIVE); SPECIFIC GRAVITIY, URINE 1.008 (1.003-1.030); UROBILINOGEN,URINE <=1.0 mg/dL (<=1.0)
[2021-08-27 23:41] LABS: AMPHET/METH SCREEN,URINE POSITIVE (NEGATIVE); BARBITURATE SCREEN, URINE NEGATIVE (NEGATIVE); BENZODIAZEPINES SCREEN,URINE NEGATIVE (NEGATIVE); CANNABINOID SCREEN,URINE POSITIVE (NEGATIVE); COCAINE SCREEN,URINE NEGATIVE (NEGATIVE); METHADONE SCREEN, URINE NEGATIVE (NEGATIVE); OPIATE SCREEN,URINE NEGATIVE (NEGATIVE); PHENCYCLIDINE SCREEN,URINE NEGATIVE (NEGATIVE)
[2021-08-28 12:15] LABS: AMPHET/METH SCREEN,URINE POSITIVE (NEGATIVE); BARBITURATE SCREEN, URINE NEGATIVE (NEGATIVE); BENZODIAZEPINES SCREEN,URINE NEGATIVE (NEGATIVE); CANNABINOID SCREEN,URINE POSITIVE (NEGATIVE); COCAINE SCREEN,URINE NEGATIVE (NEGATIVE); METHADONE SCREEN, URINE NEGATIVE (NEGATIVE); OPIATE SCREEN,URINE NEGATIVE (NEGATIVE)
[2021-08-28 12:19] LABS: PHENCYCLIDINE SCREEN,URINE NEGATIVE (NEGATIVE)
[2021-08-29 08:42] VITALS: BP 92/68
[2021-08-29 10:09] VITALS: BP 111/63
[2021-08-29] MEDS ORDERED: MAGNESIUM HYDROXIDE SUSPENSION 30 ML UDCUP PO PRN (14:45)
[2021-08-29] MEDS ORDERED: ACETAMINOPHEN 325 MG TABLET PO PRN (14:45)
[2021-08-29] MEDS ORDERED: PETROLATUM,WHITE 28 GM JELLY TP PRN (14:45)
[2021-08-29] MEDS ORDERED: GuaiFENesin/D-METHORPHAN [SUGAR-FREE] 200-20MG/10 ML SYRUP UDCUP PO PRN (14:45)
[2021-08-29] MEDS ORDERED: ALBUTEROL SULFATE HFA 90 MCG/PUFF 8 GM INHALER IH PRN (14:45)
[2021-08-29] MEDS ORDERED: NICOTINE 14 MG/24 HOUR PATCH TD PRN (14:45)
[2021-08-29] MEDS ORDERED: DOCUSATE SODIUM 100 MG CAPSULE PO PRN (14:45)
[2021-08-29] MEDS ORDERED: ONDANSETRON HCL 4 MG TABLET PO PRN (14:45)
[2021-08-29] MEDS ORDERED: CloNIDine HCL 0.1 MG TABLET PO PRN (14:45)
[2021-08-29] MEDS ORDERED: LOPERAMIDE HCL 2 MG CAPSULE PO PRN (14:45)
[2021-08-29] MEDS ORDERED: MAG HYDROX/AL HYDROX/SIMETH ES 30 ML SUSPENSION UDCUP PO PRN (14:45)
[2021-08-29] MEDS ORDERED: IBUPROFEN 400 MG TABLET PO PRN (14:45)
[2021-08-29 16:03] VITALS: BP 128/73
[2021-08-29] MEDS: LORazepam 2 MG TABLET PO PRN (20:40)
[2021-08-30 04:56] VITALS: BP 118/74
[2021-08-30 08:02] VITALS: BP 113/62
[2021-08-30] MEDS: LORazepam 2 MG TABLET PO PRN ×2 (08:58→21:32)
[2021-08-30 16:01] VITALS: BP 116/72
[2021-08-30] MEDS: RisperiDONE 2 MG TABLET PO SCH (21:32)
[2021-08-31 05:26] VITALS: BP 108/81
[2021-08-31 08:22] VITALS: BP 128/80
[2021-08-31] MEDS: LORazepam 2 MG TABLET PO PRN ×2 (08:42→19:47)
[2021-08-31] MEDS: RisperiDONE 2 MG TABLET PO SCH ×2 (08:42→20:05)
[2021-08-31 16:03] VITALS: BP 108/69
[2021-09-01 01:48] VITALS: BP 110/76
[2021-09-01] MEDS: LORazepam 2 MG TABLET PO PRN ×3 (08:04→20:38)
[2021-09-01] MEDS: RisperiDONE 2 MG TABLET PO SCH ×2 (08:04→20:39)
[2021-09-01 08:10] VITALS: BP 129/77
[2021-09-01 16:03] VITALS: BP 135/88
[2021-09-02 01:09] VITALS: BP 86/59
[2021-09-02 08:12] VITALS: BP 104/63
[2021-09-02] MEDS: LORazepam 2 MG TABLET PO PRN (08:23)
[2021-09-02] MEDS: RisperiDONE 2 MG TABLET PO SCH ×2 (08:23→20:24)
[2021-09-02 16:02] VITALS: BP 105/68
[2021-09-03 03:45] VITALS: BP 101/62
[2021-09-03 08:05] VITALS: BP 112/68
[2021-09-03] MEDS: LORazepam 2 MG TABLET PO PRN (08:44)
[2021-09-03] MEDS: RisperiDONE 2 MG TABLET PO SCH ×2 (08:44→20:05)
[2021-09-03 16:07] VITALS: BP 114/77
[2021-09-04 01:56] VITALS: BP 123/74
[2021-09-04 08:04] VITALS: BP 110/63
[2021-09-04] MEDS: LORazepam 2 MG TABLET PO PRN (08:14)
[2021-09-04] MEDS: RisperiDONE 2 MG TABLET PO SCH (08:14)
[2021-09-04] MEDS ORDERED: RISP2TAB86 PO (09:34)
== END 2021-09-04 13:45 | disposition home or self-care (01) | DRG 750 ==
LOC: EMS 19:29 → B3A 08-29 06:00
PROVIDERS: ADMIT Psychiatry & Neurology Psychiatry; ATTEND Psychiatry & Neurology Psychiatry
DX: F20.0 Paranoid schizophrenia (principal); R45.850 Homicidal ideations; G47.00 Insomnia, unspecified; Y90.1 Blood alcohol level of 20-39 mg/100 ml; F10.10 Alcohol abuse, uncomplicated; F12.10 Cannabis abuse, uncomplicated; F15.10 Other stimulant abuse, uncomplicated; Z20.822 Contact with and (suspected) exposure to COVID-19; R00.0 Tachycardia, unspecified; Z79.899 Other long term (current) drug therapy; Z91.14 Patient's other noncompliance with medication regimen; Z91.19 Patient's noncompliance with other medical treatment and regimen; Z71.41 Alcohol abuse counseling and surveillance of alcoholic; Z71.51 Drug abuse counseling and surveillance of drug abuser
CPT/HCPCS: 80053; 81003; 85025; 99285; G0480

== ENCOUNTER 2021-09-09 01:01 | Emergency (ER) | payer MEDICAID, OTHER ==
[~2021-09-09] VITALS: Ht 180.3 cm; Wt 72.7 kg
[~2021-09-09 01:01] MED LIST changes: +RISP2TAB86 PO; -RISP3TAB35 PO
[2021-09-09] MEDS ORDERED: LORazepam 1 MG TABLET PO ONE (01:15)
[2021-09-09] MEDS ORDERED: RisperiDONE 1 MG TABLET PO ONE (01:15)
[2021-09-09 01:20] LABS: BASOPHILS % (AUTO) 0.3 % (0.0-2.0); EOSINOPHILS % (AUTO) 10.6 % (1.0-6.0); HEMATOCRIT 40.3 % (41-53); LYMPHOCYTES # (AUTO) 1.4 K/uL (1.0-4.8); LYMPHOCYTES % (AUTO) 19.6 % (22.0-44.0); MEAN CORPUSCULAR HEMOGLOBIN 29.6 pg (26.0-34.0); MEAN CORPUSCULAR HGB CONC 34.6 G/dL (31.0-37.0); MEAN CORPUSCULAR VOLUME 86 fL (80-100); MONOCYTES # (AUTO) 0.4 K/uL (0.1-1.0); MONOCYTES % (AUTO) 6.1 % (2.0-9.0); NEUTROPHILS # (AUTO) 4.7 K/uL (1.8-7.7); NEUTROPHILS % (AUTO) 63.4 % (40.0-70.0); PLATELET COUNT (AUTO) 280 K/uL (150-450); RED BLOOD CELL COUNT(AUTO) 4.71 MIL/uL (4.50-5.90); RED CELL DISTRIBUTION WIDTH 13.4 % (11.5-14.5)
[2021-09-09 01:38] LABS: ANION GAP 6 mmol/L (8-16); CALCIUM, TOTAL 8.5 mg/dL (8.8-10.5); CARBON DIOXIDE 30 mmol/L (22-29); CHLORIDE 104 mmol/L (98-107); CREATININE 0.85 mg/dL (0.60-1.30); GLOMERULAR FILTR. RATE CALC > 60 mL/min (>60); GLUCOSE,RANDOM 109 mg/dL (70-110); POTASSIUM 3.9 mmol/L (3.5-5.1); SODIUM SERUM 140 mmol/L (136-145); UREA NITROGEN, BLOOD 8 mg/dL (7-18)
[2021-09-09 01:44] LABS: ALANINE AMINOTRANSFERASE 25 U/L (12-78); ALBUMIN 3.6 g/dL (3.4-5.0); ALKALINE PHOSPHATASE 80 U/L (46-116); ASPARTATE AMINOTRANSFERASE 21 U/L (15-37); BILIRUBIN,TOTAL 0.4 mg/dL (0.1-1.0); TOTAL PROTEIN, SERUM 7.1 g/dL (6.4-8.2)
[2021-09-09 01:46] LABS: AMPHET/METH SCREEN,URINE POSITIVE (NEGATIVE); BARBITURATE SCREEN, URINE NEGATIVE (NEGATIVE); BENZODIAZEPINES SCREEN,URINE NEGATIVE (NEGATIVE); CANNABINOID SCREEN,URINE POSITIVE (NEGATIVE); COCAINE SCREEN,URINE NEGATIVE (NEGATIVE); METHADONE SCREEN, URINE NEGATIVE (NEGATIVE); OPIATE SCREEN,URINE NEGATIVE (NEGATIVE)
[2021-09-09 01:47] LABS: PHENCYCLIDINE SCREEN,URINE NEGATIVE (NEGATIVE)
[2021-09-09 05:47] VITALS: BP 116/62
== END 2021-09-09 05:47 | disposition home or self-care (01) ==
LOC: EMS 01:07
DX: F24 Shared psychotic disorder (principal); F15.90 Other stimulant use, unspecified, uncomplicated; F14.90 Cocaine use, unspecified, uncomplicated; F12.90 Cannabis use, unspecified, uncomplicated
CPT/HCPCS: 36415; 80053; 80307; 85025; 99285; G0480

== ENCOUNTER 2021-11-25 17:35 | Inpatient (IN) | payer MEDICAID, OTHER ==
[~2021-11-25] VITALS: Ht 177.8 cm; Wt 72.6 kg
[2021-11-25 19:05] LABS: BASOPHILS % (AUTO) 0.3 % (0.0-2.0); EOSINOPHILS % (AUTO) 5.8 % (1.0-6.0); HEMATOCRIT 37.6 % (41-53); LYMPHOCYTES # (AUTO) 1.7 K/uL (1.0-4.8); LYMPHOCYTES % (AUTO) 27.4 % (22.0-44.0); MEAN CORPUSCULAR HEMOGLOBIN 30.3 pg (26.0-34.0); MEAN CORPUSCULAR HGB CONC 34.6 G/dL (31.0-37.0); MEAN CORPUSCULAR VOLUME 88 fL (80-100); MONOCYTES # (AUTO) 0.4 K/uL (0.1-1.0); MONOCYTES % (AUTO) 6.1 % (2.0-9.0); NEUTROPHILS # (AUTO) 3.7 K/uL (1.8-7.7); NEUTROPHILS % (AUTO) 60.4 % (40.0-70.0); PLATELET COUNT (AUTO) 227 K/uL (150-450); RED BLOOD CELL COUNT(AUTO) 4.28 MIL/uL (4.50-5.90); RED CELL DISTRIBUTION WIDTH 12.9 % (11.5-14.5)
[2021-11-25 19:13] LABS: ANION GAP 10 mmol/L (8-16); CALCIUM, TOTAL 8.7 mg/dL (8.8-10.5); CARBON DIOXIDE 25 mmol/L (22-29); CHLORIDE 107 mmol/L (98-107); CREATININE 0.74 mg/dL (0.60-1.30); GLUCOSE,RANDOM 101 mg/dL (70-110); POTASSIUM 3.5 mmol/L (3.5-5.1); SODIUM SERUM 142 mmol/L (136-145); UREA NITROGEN, BLOOD 11 mg/dL (7-18)
[2021-11-25 19:14] LABS: GLOMERULAR FILTR. RATE CALC > 60 mL/min (>60)
[2021-11-25 19:19] LABS: ALANINE AMINOTRANSFERASE 23 U/L (12-78); ALBUMIN 3.3 g/dL (3.4-5.0); ALKALINE PHOSPHATASE 75 U/L (46-116); ASPARTATE AMINOTRANSFERASE 15 U/L (15-37); BILIRUBIN,TOTAL 0.3 mg/dL (0.1-1.0); TOTAL PROTEIN, SERUM 6.4 g/dL (6.4-8.2)
[2021-11-25 19:19] LABS: AMPHET/METH SCREEN,URINE POSITIVE (NEGATIVE); BARBITURATE SCREEN, URINE NEGATIVE (NEGATIVE); BENZODIAZEPINES SCREEN,URINE NEGATIVE (NEGATIVE); CANNABINOID SCREEN,URINE POSITIVE (NEGATIVE); COCAINE SCREEN,URINE NEGATIVE (NEGATIVE); METHADONE SCREEN, URINE NEGATIVE (NEGATIVE); OPIATE SCREEN,URINE NEGATIVE (NEGATIVE)
[2021-11-25 19:20] LABS: PHENCYCLIDINE SCREEN,URINE NEGATIVE (NEGATIVE)
[2021-11-25] MEDS ORDERED: LORazepam 1 MG TABLET PO ONE (21:00)
[2021-11-25] MEDS ORDERED: RisperiDONE 1 MG TABLET PO ONE (21:00)
[2021-11-25] MEDS ORDERED: HALOPERIDOL 5 MG TABLET PO PRN (21:15)
[2021-11-25] MEDS ORDERED: ZOLPIDEM TARTRATE 10 MG TABLET PO PRN (21:15)
[2021-11-25 21:40] LABS: COVID AG,FIA SOURCE NASAL SWAB
[2021-11-25 21:44] LABS: APPEARANCE,URINE CLEAR (CLEAR); BILIRUBIN,URINE NEGATIVE (NEGATIVE); GLUCOSE, URINE (UA) NEGATIVE (NEGATIVE); KETONES,URINE NEGATIVE (NEGATIVE); LEUKOCYTE ESTERASE ,URINE NEGATIVE (NEGATIVE); NITRATE,URINE NEGATIVE (NEGATIVE); OCCULT BLOOD,URINE NEGATIVE (NEGATIVE); PROTEIN,URINE NEGATIVE (NEGATIVE); SPECIFIC GRAVITIY, URINE 1.013 (1.003-1.030); UROBILINOGEN,URINE <=1.0 mg/dL (<=1.0)
[2021-11-26] MEDS: LORazepam 2 MG TABLET PO PRN (03:56)
[2021-11-26 04:06] VITALS: BP 124/72
[2021-11-26 06:01] VITALS: BP 124/64
[2021-11-26] MEDS ORDERED: MAG HYDROX/AL HYDROX/SIMETH ES 30 ML SUSPENSION UDCUP PO PRN (06:15)
[2021-11-26] MEDS ORDERED: IBUPROFEN 600 MG TABLET PO PRN (06:15)
[2021-11-26] MEDS ORDERED: OMEPRAZOLE 20 MG CAPSULE PO PRN (06:15)
[2021-11-26] MEDS ORDERED: ONDANSETRON HCL 4 MG TABLET PO PRN (06:15)
[2021-11-26] MEDS ORDERED: BACITRACIN 28 GM OINTMENT TP PRN (06:15)
[2021-11-26] MEDS ORDERED: PETROLATUM,WHITE 28 GM JELLY TP PRN (06:15)
[2021-11-26] MEDS ORDERED: BENZOCAINE/MENTHOL LOZENGE PO PRN (06:15)
[2021-11-26] MEDS ORDERED: LOPERAMIDE HCL 2 MG CAPSULE PO PRN (06:15)
[2021-11-26] MEDS ORDERED: MAGNESIUM HYDROXIDE SUSPENSION 30 ML UDCUP PO PRN (06:15)
[2021-11-26] MEDS ORDERED: ALBUTEROL SULFATE HFA 90 MCG/PUFF 8 GM INHALER IH PRN (06:15)
[2021-11-26] MEDS ORDERED: CloNIDine HCL 0.1 MG TABLET PO PRN (06:15)
[2021-11-26] MEDS ORDERED: DOCUSATE SODIUM 100 MG CAPSULE PO PRN (06:15)
[2021-11-26] MEDS ORDERED: ACETAMINOPHEN 325 MG TABLET PO PRN (06:15)
[2021-11-26] MEDS: RisperiDONE 3 MG TABLET PO SCH (16:52)
[2021-11-26 20:20] VITALS: BP 119/69
[2021-11-27 07:40] LABS: HEMOGLOBIN A1C 5.5 % (3.8-5.6)
[2021-11-27 07:49] LABS: FREE T4 (FREE THYROXINE) 1.03 ng/dL (0.76-1.46); THYROID STIMULATING HORMONE 1.68 uIU/mL (0.36-3.74)
[2021-11-27 08:42] VITALS: BP 123/72
[2021-11-27] MEDS: RisperiDONE 3 MG TABLET PO SCH ×2 (09:35→16:42)
[2021-11-27 17:45] VITALS: BP 141/59
[2021-11-27 20:37] VITALS: BP 128/69
[2021-11-28] MEDS: RisperiDONE 3 MG TABLET PO SCH ×2 (08:17→16:14)
[2021-11-28 08:57] VITALS: BP 125/69
[2021-11-28] MEDS: LORazepam 2 MG TABLET PO PRN (14:15)
[2021-11-28] MEDS ORDERED: RISP3TAB63 PO (19:00)
[2021-11-28 20:24] VITALS: BP 140/69
[2021-11-29 08:36] VITALS: BP 127/69
[2021-11-29] MEDS: RisperiDONE 3 MG TABLET PO SCH (08:38)
== END 2021-11-29 09:17 | disposition home or self-care (01) | DRG 750 ==
LOC: EMS 17:38 → B2S 11-26 00:06
PROVIDERS: ADMIT Psychiatry & Neurology Psychiatry; ATTEND Psychiatry & Neurology Psychiatry
DX: F25.9 Schizoaffective disorder, unspecified (principal); R45.850 Homicidal ideations; F32.A Depression, unspecified; F41.9 Anxiety disorder, unspecified; G47.00 Insomnia, unspecified; K59.00 Constipation, unspecified; Z20.822 Contact with and (suspected) exposure to COVID-19; R09.02 Hypoxemia; F19.10 Other psychoactive substance abuse, uncomplicated; Z72.0 Tobacco use; Z71.6 Tobacco abuse counseling
CPT/HCPCS: 80053; 80061; 81003; 83036; 84439; 84443; 85025; 99285; G0480

== ENCOUNTER 2021-12-22 17:02 | Emergency (ER) | payer MEDICAID, OTHER ==
[~2021-12-22] VITALS: Ht 175.3 cm; Wt 72.7 kg
[~2021-12-22 17:02] MED LIST changes: -RISP2TAB86 PO; +RISP3TAB63 PO
[2021-12-22 21:29] LABS: BASOPHILS % (AUTO) 0.5 % (0.0-2.0); HEMATOCRIT 39.9 % (41-53); LYMPHOCYTES % (AUTO) 30.7 % (22.0-44.0); MEAN CORPUSCULAR HEMOGLOBIN 30.3 pg (26.0-34.0); MEAN CORPUSCULAR VOLUME 87 fL (80-100); MONOCYTES # (AUTO) 0.6 K/uL (0.1-1.0); MONOCYTES % (AUTO) 8.8 % (2.0-9.0); PLATELET COUNT (AUTO) 201 K/uL (150-450); RED BLOOD CELL COUNT(AUTO) 4.61 MIL/uL (4.50-5.90); RED CELL DISTRIBUTION WIDTH 12.5 % (11.5-14.5)
[2021-12-22 21:38] LABS: ANION GAP 6 mmol/L (8-16); CALCIUM, TOTAL 8.6 mg/dL (8.8-10.5); CARBON DIOXIDE 29 mmol/L (22-29); CHLORIDE 101 mmol/L (98-107); CREATININE 0.89 mg/dL (0.60-1.30); GLUCOSE,RANDOM 107 mg/dL (70-110); POTASSIUM 3.4 mmol/L (3.5-5.1); SODIUM SERUM 136 mmol/L (136-145); UREA NITROGEN, BLOOD 12 mg/dL (7-18)
[2021-12-22 21:39] LABS: GLOMERULAR FILTR. RATE CALC > 60 mL/min (>60)
[2021-12-22 21:44] LABS: ALANINE AMINOTRANSFERASE 22 U/L (12-78); ALBUMIN 3.7 g/dL (3.4-5.0); ALKALINE PHOSPHATASE 78 U/L (46-116); ASPARTATE AMINOTRANSFERASE 17 U/L (15-37); BILIRUBIN,TOTAL 0.3 mg/dL (0.1-1.0); TOTAL PROTEIN, SERUM 7.2 g/dL (6.4-8.2)
[2021-12-22] MEDS ORDERED: RisperiDONE 1 MG TABLET PO ONE (22:00)
[2021-12-22 22:20] VITALS: BP 152/71
== END 2021-12-22 22:36 | disposition home or self-care (01) ==
LOC: EMS 17:08
DX: R45.851 Suicidal ideations (principal); F20.9 Schizophrenia, unspecified; F15.10 Other stimulant abuse, uncomplicated; F14.90 Cocaine use, unspecified, uncomplicated; F12.90 Cannabis use, unspecified, uncomplicated; Z59.00 Homelessness unspecified
CPT/HCPCS: 99285; 80053; 85025; G0480